=== PATIENT | female | born 1975 | race Caucasian/White ===

== ENCOUNTER 2023-05-25 12:14 | Outpatient (REF) | payer OTHER, SELFPAY | END 2023-05-25 12:15 | disposition home or self-care (01) | LOC: HO.LNP 12:14 | PROVIDERS: Visit Provider Otolaryngology | DX: H92.01 Otalgia, right ear (principal) | CPT/HCPCS: 87070; 87102; 87107; 87205 ==

== ENCOUNTER 2023-06-21 14:09 | Outpatient (AMB) | payer OTHER, SELFPAY ==
[2023-06-21 14:19] VITALS: BP 118/68; PULSE 82; O2SAT 98; BMI 40.2
--- NOTE | 2023-06-21 14:19 | A.OFFPC_ITS ---
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 Accompanied by: Self / Same As Patient Allergies azithromycin Allergy (Severe, Verified 06/21/23 17:29) Unknown Medication List - Last Reconciled 06/21/23 by VIKASH Antoine cetirizine (Allergy Relief (cetirizine)) 10 mg PO DAILY PRN estradiol 1 mg PO DAILY estradiol 0.5 mg PO DAILY semaglutide (weight loss) (Wegovy) 0.25 mg (0.5 mL) subcut QWEEK Tobacco use date assessed: 06/21/23 Dental Screening Dental Screen Date: 06/21/23 Did you have a dental visit in the last 12 months?: Yes Did you have a dental problem in the last 6 months where you did not have access to dental care?: No Was dental information given to patient?: Patient has dentist HPI New patient-Discuss weight loss HPI Details obesity: had lap gastric band surgery 2003. Has been on Rajni Boone , worked well, then had a child, and developed excessive weight gain. Pt has been on multiple diets, with little to minimal weight loss. I will try her on wegovy. Pt reports her mammogram is up to date, and has a nurse gynecology. Pt reported never having a colon screen, will refer. [facility] Surgical History S/P LASIK surgery of both eyes Hx of section S/P cholecystectomy Hx of laparoscopic gastric banding Hx of tonsillectomy Family History Mother Diabetes Uterine cancer Father Heart attack Social History Alcohol intake: current Alcohol intake frequency: holidays/special occasions only Alcohol type: beer and hard liquor Patient Tobacco Use Status: Never used Tobacco e-Cigarette/Vaping Use: Never Used service: No Current occupational status: employed Current occupation: teacher, [employer] Cognitive needs: No Hearing needs: No Vision needs: No Questionnaire PHQ-9 Over the last 2 weeks, how often have you been bothered by any of the following problems? 1. Little interest or pleasure in doing things: several days 2. Feeling down, depressed, or hopeless: several days 3. Trouble falling or staying asleep, or sleeping too much: not at all 4. Feeling tired or having little energy: several days 5. Poor appetite or overeating: several days 6. Feeling bad about yourself - or that you are a failure or have let yourself or your family down: not at all 7. Trouble concentrating on things, such as reading the newspaper or watching television: several days 8. Moving or speaking so slowly that other people could have noticed. Or the opposite - being so fidgety or restless that you have been moving around a lot more than usual: not at all 9. Thoughts that you would be better off or of hurting yourself in some way: not at all Total score: 5 Depression Screening Interpretation: Negative Depression Screening Done: Yes 49449 - PHQ-9 Billing: Yes Source: Developed by Drs. Leroy Becerril, Vanessa Brooks, Narendra Proctor and colleagues, with an educational tessy from [employer]. Thrive Questionnaire Date Thrive assessed: 06/21/23 I am a: Patient What is your living situation today?: I have a steady place to live Within the past 12 months, did the food you bought not last and you didn't have the money to get more?: Never true Within the past 12 months, did you worry whether your food would run out before you got money to buy more?: Never true Do you have trouble paying for medicines?: No Do you have trouble getting transportation to medical appointments?: No Do you have trouble paying your heating and electricity bill?: No Do you have trouble taking care of your child, family member or friend?: No Do you have trouble with day-to-day activities such as bathing, preparing meals, shopping, managing finances, etc.?: No Are you currently unemployed and looking for a job?: No Are you interested in more education?: No Please select the resources that you would like help with: None Currently or been in a relationship where the following occur: no concerns reported THRIVE Score: 0 YOVANI-7 AMB Questionnaire YOVANI-7 Date YOVANI - 7 assessed: 06/21/23 Feeling nervous, anxious, or on edge: 1 = Several days Not being able to stop or control worryin = Several days Worrying too much about different things: 1 = Several days Trouble relaxin = Several days Being so restless that it is hard to sit still: 1 = Several days Becoming easily annoyed or irritable: 1 = Several days Feeling afraid as if something awful might happen: 1 = Several days Total YOVANI-7 score (0-4 normal; 5-9 mild; 10-14 moderate; 15-21 severe): 7 Source: Developed by Drs. Leroy Becerril, Vanessa Brooks, Narendra Proctor and colleagues, with an educational tessy from [employer]. YOVANI-7 Assessment Billing YOVANI-7 Assessment Tool: YOVANI-7 Assessment 38368 Physical exam (Primary Care) Vital Signs: Last Vital Signs Pulse 82 06/21/23 14:19 BP 118/68 06/21/23 14:19 Pulse Ox 98 06/21/23 14:19 BMI result Body Mass Index 40.2 Tobacco/Smoking Status: Tobacco use Status Tobacco use date assessed 06/21/23 06/21/23 14:30 Patient Tobacco Use Status Never used Tobacco 06/21/23 14:30 e-Cigarette/Vaping Use Never Used 06/21/23 14:30 PHQ-9: PHQ-9 Score PHQ-9: Total score 5 06/21/23 15:15 Depression Screening Interpretation: Negative Thrive Assessment: Date of Thrive Assessment Date Thrive assessed 06/21/23 06/21/23 14:30 Currently or been in a relationship where the following occur: no concerns reported Const General: cooperative Nutritional Appearance: obese Resp Effort & Inspection: normal respiratory effort Auscultation: clear to auscultation bilaterally Cardio Rate: regular rate Rhythm: regular rhythm Heart sounds: S1 normal heart sound present and S2 normal heart sound present Psych Appearance: grossly normal Mental Status: mental status grossly normal Speech and movement: Normal speech and movement present Affect: normal affect Attitude: cooperative Thought process: Normal thought process present Thought content: Normal thought content present Insight: Good insight present (Psych) Judgement: Good judgement present (Psych) Assessment and Plan Assessment & Plan (1) Screening for colon cancer: Code(s): Z12.11 - Encounter for screening for malignant neoplasm of colon (2) Obesity: Code(s): E66.9 - Obesity, unspecified Plan: starting wegovy Orders: Orders Complete Blood Count Auto Diff Today E66.9 - Obesity, unspecified Comprehensive [place]. Panel Fast Today E66.9 - Obesity, unspecified Lipid Panel Today E66.9 - Obesity, unspecified TSH reflex Free T4 Today E66.9 - Obesity, unspecified UA CC w/rflx Micro + Cult Today E66.9 - Obesity, unspecified Referrals Gastroenterology Referral Z12.11 - Encounter for screening for malignant neoplasm of colon Medications: New semaglutide (weight loss) (Wegovy) administer weeks 1 through 4 of therapy 0.25 mg (0.5 mL) subcut QWEEK 2 mL 1RF semaglutide (weight loss) (Wegovy) administer weeks 1 through 4 of therapy 0.25 mg (0.5 mL) subcut QWEEK 2 mL 1RF Coding Level of Care Code New Pt Level 3 (06261) Diagnoses Screening for colon cancer Z12.11 Obesity E66.9 Additional Codes YOVANI-7 Assessment Billing - YOVANI-7 Assessment Tool: YOVANI-7 Assessment 42231 ([id number])
== END 2023-06-21 16:41 | disposition home or self-care (01) ==
PROVIDERS: PCP Nurse Practitioner Family; Visit Provider Nurse Practitioner Family
DX: E66.9 Obesity, unspecified (principal); Z68.41 Body mass index [BMI] 40.0-44.9, adult; Z12.11 Encounter for screening for malignant neoplasm of colon
CPT/HCPCS: 99213

== ENCOUNTER 2023-07-24 07:51 | Outpatient (REF) | payer OTHER, SELFPAY ==
[2023-07-24 10:15] LABS: MANUAL DIFF FLAG NO
[2023-07-24 10:17] LABS: Appearance Urine Clear; Color Urine Dark Yellow; Glucose Urine UA Negative (Negative); Leukocyte Esterase Urine Trace (Negative); Nitrite Urine Negative (Negative); Specific Gravity - Urine 1.025 (1.005-1.025); UMIC TRIGGER UACC YES; Urine Blood Negative (Negative); Urine Ketones Negative (Negative); Urine Protein Negative (Neg-Trace)
[2023-07-24 10:24] LABS: Bacteria Urine Trace (None Seen); Hyaline Casts Urine 0-2 /LPF (0-2); RBC Urine 0-2 /HPF (0-2); WBC Urine 0-5 /HPF (0-5)
[2023-07-24 10:26] LABS: Basophils Absolute Auto 0.1 X10*3/uL (0.0-0.2); Basophils Percent Auto 1.1 % (0-2); Eosinophils Absolute Auto 0.3 X10*3/uL (0.0-0.4); Eosinophils Percent Auto 5.7 % (0-4); Hematocrit 40.4 % (37.0-47.0); Hemoglobin 12.9 g/dl (12.0-16.0); Imm Gran Abs Auto 0.01 X10*3/uL (0.00-0.03); Imm Gran Pct Auto 0.2 % (0.0-0.4); Lymphocytes Absolute Auto 2.2 X10*3/uL (1.2-4.9); Lymphocytes Percent Auto 39.1 % (20-40); Mean Corpuscular HGB Conc 31.9 g/dl (31.0-35.0); Mean Corpuscular Hemoglobin 26.8 pg (27.0-33.0); Mean Platelet Volume 9.3 fL (9.4-12.3); Monocytes Absolute Auto 0.4 X10*3/uL (0.1-1.2); Monocytes Percent Auto 7.6 % (2-11); Neutrophils Absolute Auto 2.6 x10*3/uL (2.0-8.3); Neutrophils Percent Auto 46.3 % (45-73); Platelet Count 288 X10*3/uL (160-400); Red Blood Count 4.81 X10*6/uL (4.20-5.50); Red Cell Distribution Width 14.6 % (11.0-16.0); White Blood Count 5.6 X10*3/uL (4.8-10.8)
[2023-07-24 11:05] LABS: Alanine Aminotransferase 16 U/L (0-31); Alkaline Phosphatase 54 U/L (39-117); Anion Gap 9 (12-20); Aspartate Amino Transferase 18 U/L (5-31); Bilirubin Total 0.8 mg/dL (0.0-1.0); Blood Urea Nitrogen 8 mg/dL (9-16); Calcium 8.7 mg/dL (8.4-10.2); Carbon Dioxide 27 mmol/L (22-29); Chloride 108 mmol/L (96-108); Cholesterol 200 mg/dL (<200); Estimated Glomerular Filt Rate > 60; Glucose Fasting 98 mg/dL (60-99); HDL Cholesterol 55 mg/dL (>40); LDL Cholesterol Calculated 123 mg/dL (<100); Potassium 3.4 mmol/L (3.3-5.1); Sodium 141 mmol/L (135-145); Total Protein 6.9 g/dL (6.5-8.0); Triglycerides 114 mg/dL (<150)
[2023-07-24 11:30] LABS: TSH reflex Free T4 2.33 uIU/mL (0.32-4.0)
== END 2023-07-24 07:52 | disposition home or self-care (01) ==
LOC: HO.HMGCLDS 07:51
PROVIDERS: PCP Nurse Practitioner Family; Visit Provider Nurse Practitioner Family
DX: E66.9 Obesity, unspecified (principal)
CPT/HCPCS: 36415; 80053; 80061; 81001; 84443; 85025

== ENCOUNTER 2023-12-05 11:30 | Outpatient (AMB) | payer OTHER, SELFPAY ==
[2023-12-05 11:33] VITALS: BP 114/58; PULSE 77; BMI 39.6
--- NOTE | 2023-12-05 11:33 | A.OFFVIS_ITS ---
Vital Signs 3 12/05/23 11:33 Height 5 ft 4 in Weight 230 lb 9.656 oz BMI 39.6 BP 114/58 L Blood Pressure Location Rt brachial Position Sitting Pulse 77 Intake Visit Reasons: Colonoscopy Screening Intake Note: Lona presents in office today as a new patient for colonoscopy screening. CC: Patient states that she was on vacation and returned on Monday. She reports onset of lower back pain that started on Monday. Pain is a 7/10 pain scale and it has radiated from her right lower back to her left lower back, pain feels like a stabbing. She reports having some constipation. She took stool softener but has only been able to have very small stool pass. She also report nausea sometimes. She states that a few months ago she saw bright red blood in the toilet bowl but her PCP was not concerned about it. She has hx of hemorrhoids when she was . 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 She is referred by Sang Jolly. PMX Obesity Back pain * SURGICAL HISTORY Lasix surgery section Cholecystectomy Lap gastric band Tonsillectomy * ALLERGIES Zithromax - rash * Wi3 LABS: Laboratory Tests 07/24/23 07:55 WBC 5.6 Hgb 12.9 Hct 40.4 Plt Count 288 Estimated GFR > 60 Total Bilirubin 0.8 AST 18 ALT 16 Alkaline Phosphatase 54 TSH 2.33 TODAY'S VISIT This is her first colonoscopy. She generally does not have bowel problems, but she has had back pain and CIC just this once since she was on vacation - I recommend MOM, miralax and/or senna. No upper problems. She denies any cardiac or respiratory problems There are no prior problems with anesthesia or sedation. No ID problems. There is no known FHX of crc or polyps. [facility] Surgical History S/P LASIK surgery of both eyes Hx of section S/P cholecystectomy Hx of laparoscopic gastric banding Hx of tonsillectomy Family History Mother Diabetes Uterine cancer Father Heart attack Social History Alcohol intake: current Alcohol intake frequency: holidays/special occasions only Alcohol type: beer and hard liquor Patient Tobacco Use Status: Never used Tobacco e-Cigarette/Vaping Use: Never Used service: No Current occupational status: employed Current occupation: teacher, [employer] Cognitive needs: No Hearing needs: No Vision needs: No Review of Systems Const Denies fatigue, Denies fever(s), Denies night sweats, Denies poor appetite and Denies weight loss ENT Reports Normal hearing present, Denies dysphagia, Denies odynophagia, Denies throat swelling and Denies tongue swelling Card Reports no additional complaints Resp Reports no additional complaints GI Details: Denies abdominal pain, Denies melena, Denies bloating, Denies hematochezia, Reports constipation, Denies GI cramping, Denies dysphagia, Denies excessive flatus, Denies early satiety, Denies heartburn, Denies diarrhea, Denies nausea, Denies odynophagia, Denies vomiting and Denies hematemesis Skin/Breast Denies pruritus, Denies lesions, Denies rash and Denies jaundice Neuro Reports Normal hearing present and Denies Abnormal speech present Endo Denies fatigue Aller/Immun Denies throat swelling and Denies tongue swelling Physical Exam Vital Signs: Last Vital Signs Pulse 77 12/05/23 11:33 BP 114/58 L 12/05/23 11:33 BMI result Body Mass Index 39.6 Const General: cooperative, no acute distress, well developed and well groomed Nutritional Appearance: well nourished and obese Orientation/consciousness: oriented to person, oriented to place and oriented to time Limitations: No language barrier HEENT Head: Yes normocephalic and Yes atraumatic Eyes General: appearance normal, both eyes and all related structures Pupils: Equal, round and reactive pupils present Neck Neck: Yes normal visual inspection and Yes no lymphadenopathy Thyroid: Thyroid normal Resp Effort & Inspection: normal respiratory effort and able to speak in complete sentences Auscultation: clear to auscultation bilaterally Cardio Rate: regular rate Rhythm: regular rhythm Heart sounds: Normal, physiologic split S2 sound present Peripheral pulses: radial pulses present and posterior tibial pulses present GI Inspection: Yes abdominal wall ecchymosis, No distended, Yes Abdominal panniculus present, Yes obesity, Yes scar and Yes striae Palpation (GI): Soft to palpation, nontender, no guarding, not rigid and No hepatosplenomegaly present Percussion: Yes normal to percussion Auscultation: normal bowel sounds Rectal Exam - Female: deferred Abdomen image: 2 1. surgical scars 2. 3. Skin General skin exam: no rashes or lesions noted, turgor normal, skin not dry, no jaundice, No spider nevi and no striae Rashes: no rashes Nails: normal Neuro General: oriented to person, oriented to place and oriented to time Cranial nerves: Yes Equal, round and reactive pupils present and Yes Normal hearing present Speech: No Abnormal speech present Extrem General: Yes normal to inspection, No clubbing, No cyanosis and No edema Psych Appearance: grossly normal and well kempt Mental Status: mental status grossly normal Speech and movement: Normal speech and movement present Affect: normal affect Attitude: cooperative Thought process: Normal thought process present and not confabulating Thought content: Normal thought content present Insight: Good insight present (Psych) Judgement: Good judgement present (Psych) Assessment & Plan Assessment & Plan (1) Pre-op examination: Code(s): Z01.818 - Encounter for other preprocedural examination Category: Medical Plan This is her first colonoscopy. She generally does not have bowel problems, but she has had back pain and CIC just this once since she was on vacation - I recommend MOM, miralax and/or senna. No upper problems. She denies any cardiac or respiratory problems There are no prior problems with anesthesia or sedation. No ID problems. There is no known FHX of crc or polyps. Orders: Orders 2 Colonoscopy - GI Use Only 12/05/23 Z01.818 - Encounter for other preprocedural examination Medications: New 2 sodium,potassium,mag sulfates 17.5-3.13-1.6 gram (Suprep Bowel Prep Kit) 480 mL orally; FOR COLONOSCOPY PREP 354 mL 0RF Coding Level of Care Code New Pt Level 3 (45966) Diagnoses Pre-op examination Z01.818
== END 2023-12-05 12:10 | disposition home or self-care (01) ==
PROVIDERS: PCP Nurse Practitioner Family; Visit Provider Nurse Practitioner
DX: Z01.818 Encounter for other preprocedural examination (principal)
CPT/HCPCS: 99203

== ENCOUNTER → 2023-12-05 11:30 | Outpatient (BNVA) | payer OTHER, SELFPAY | PROVIDERS: PCP Nurse Practitioner Family; Visit Provider Nurse Practitioner ==

== ENCOUNTER 2023-12-07 13:28 | Outpatient (AMB) | payer OTHER, SELFPAY ==
[2023-12-07 13:29] VITALS: BP 120/62; PULSE 81; O2SAT 97; BMI 39.3
--- NOTE | 2023-12-07 13:29 | MHC.PC.OV ---
Vital Signs 12/07/23 13:29 Height 5 ft 4 in Weight 229 lb BMI 39.3 BP 120/62 Blood Pressure Location Rt brachial Position Sitting Pulse 81 Pulse Source Pulse Oximeter Pulse Oximetry (%) 97 Oxygen Delivery Method Room Air Intake Visit Reasons: Annual PE Intake Note: pt is here for annual exam Allergies azithromycin Allergy (Severe, Verified 12/07/23 13:30) Unknown cat dander Allergy (Severe, Verified 12/07/23 13:30) Itching dog dander Allergy (Severe, Verified 12/07/23 13:30) Rash latex Allergy (Severe, Verified 12/07/23 13:30) rash Seasonal Allergies Allergy (Severe, Verified 12/07/23 13:30) Rash Medication List - Last Reconciled 12/07/23 by VIKASH Antoine aspirin 81 mg PO DAILY cetirizine (Allergy Relief (cetirizine)) 10 mg PO DAILY PRN d-mannose 1,000 mg PO DAILY estradiol 1 mg PO DAILY estradiol 0.5 mg PO DAILY fluticasone propionate 50 mcg/actuation 1 spray intranasal DAILY L. reuteri-L. rhamnosus 5 billion cell (RepHresh Pro-B) caps PO semaglutide (weight loss) (Wegovy) 0.25 mg (0.5 mL) subcut QWEEK Tobacco use date assessed: 06/21/23 Dental Screening Dental Screen Date: 06/21/23 HPI Annual PE HPI Details Pt is here for a PE. Will order labs. Pt is seeing GI for her colon screen. Has a sales and marketing coordinator. Mammo is up to date according to pt. Pt is interested in weight loss. She has tried losing weight with diet modification, meal prepping, exercise, etc for over 6 months. She has also tried phentermine with no success. Pt's current weight is 229lbs and her BMI is 39.3. Will send wegovy. HPI Comments History of Present Illness Details pt is here for a PE [facility] Surgical History S/P LASIK surgery of both eyes Hx of section S/P cholecystectomy Hx of laparoscopic gastric banding Hx of tonsillectomy Family History Mother Diabetes Uterine cancer Father Heart attack Social History Alcohol intake: current Alcohol intake frequency: holidays/special occasions only Alcohol type: beer and hard liquor Patient Tobacco Use Status: Never used Tobacco e-Cigarette/Vaping Use: Never Used service: No Current occupational status: employed Current occupation: teacher, [employer] Cognitive needs: No Hearing needs: No Vision needs: No Questionnaire PHQ-9 Over the last 2 weeks, how often have you been bothered by any of the following problems? 1. Little interest or pleasure in doing things: not at all 2. Feeling down, depressed, or hopeless: not at all 3. Trouble falling or staying asleep, or sleeping too much: not at all 4. Feeling tired or having little energy: not at all 5. Poor appetite or overeating: not at all 6. Feeling bad about yourself - or that you are a failure or have let yourself or your family down: not at all 7. Trouble concentrating on things, such as reading the newspaper or watching television: not at all 8. Moving or speaking so slowly that other people could have noticed. Or the opposite - being so fidgety or restless that you have been moving around a lot more than usual: not at all 9. Thoughts that you would be better off or of hurting yourself in some way: not at all Total score: 0 Depression Screening Interpretation: Negative Depression Screening Done: Yes 50833 - PHQ-9 Billing: Yes Source: Developed by Drs. Leroy Becerril, Vanessa Brooks, Narendra Proctor and colleagues, with an educational tessy from [employer]. Thrive Questionnaire Date Thrive assessed: 12/07/23 I am a: Patient What is your living situation today?: I have a steady place to live Within the past 12 months, did the food you bought not last and you didn't have the money to get more?: Never true Within the past 12 months, did you worry whether your food would run out before you got money to buy more?: Never true Do you have trouble paying for medicines?: No Do you have trouble getting transportation to medical appointments?: No Do you have trouble paying your heating and electricity bill?: No Do you have trouble taking care of your child, family member or friend?: No Do you have trouble with day-to-day activities such as bathing, preparing meals, shopping, managing finances, etc.?: No Are you currently unemployed and looking for a job?: No Are you interested in more education?: No Please select the resources that you would like help with: None Currently or been in a relationship where the following occur: No concerns reported THRIVE Score: 0 AUDIT C Alcohol Use Questionnaire (AUDIT-C) 1. How often do you have a drink containing alcohol?: Monthly or less 2. How many drinks containing alcohol do you have on a typical day when you are drinking?: 1 or 2 Total Score: 1 Score Reviewed/Action Taken: Yes YOVANI-7 AMB Questionnaire YOVANI-7 Date YOVANI - 7 assessed: 12/07/23 Feeling nervous, anxious, or on edge: 0 = Not at all Not being able to stop or control worryin = Not at all Worrying too much about different things: 0 = Not at all Trouble relaxin = Not at all Being so restless that it is hard to sit still: 0 = Not at all Becoming easily annoyed or irritable: 1 = Several days Feeling afraid as if something awful might happen: 0 = Not at all Total YOVANI-7 score (0-4 normal; 5-9 mild; 10-14 moderate; 15-21 severe): 1 Source: Developed by Drs. Leroy Becerril, Vanessa Brooks, Narendra Proctor and colleagues, with an educational tessy from [employer]. YOVANI-7 Assessment Billing YOVANI-7 Assessment Tool: YOVANI-7 Assessment 16836 Review of Systems Const Denies chills and Denies fever(s) Eyes Denies blurry vision ENT Denies vertigo, Denies dizziness and Denies sore throat Card Denies chest pain at rest, Denies chest pain with activity, Denies diaphoresis, Denies dyspnea and Denies dyspnea on exertion Resp Denies cough, Denies dyspnea, Denies dyspnea on exertion and Denies wheezing GI Denies abdominal pain, Denies melena, Denies hematochezia, Denies constipation, Denies diarrhea and Denies loose stools Denies hematuria Musc Denies numbness and Denies tingling Skin/Breast Denies lesions Neuro Denies vertigo, Denies dizziness, Denies numbness and Denies tingling Psych Denies anxiety, Denies depression, Denies homicidal ideation, Denies suicidal ideation and Denies other (substance abuse) Aller/Immun Denies wheezing Physical exam (Primary Care) Vital Signs: Last Vital Signs Pulse 81 12/07/23 13:29 BP 120/62 12/07/23 13:29 Pulse Ox 97 12/07/23 13:29 Oxygen Delivery Method Room Air 12/07/23 13:29 BMI result Body Mass Index 39.3 Tobacco/Smoking Status: Tobacco use Status Tobacco use date assessed 06/21/23 12/07/23 13:32 Patient Tobacco Use Status Never used Tobacco 12/07/23 13:32 e-Cigarette/Vaping Use Never Used 12/07/23 13:32 PHQ-9: PHQ-9 Score PHQ-9: Total score 0 12/07/23 13:49 Depression Screening Interpretation: Negative Thrive Assessment: Date of Thrive Assessment Date Thrive assessed 12/07/23 12/07/23 13:32 Currently or been in a relationship where the following occur: No concerns reported Const General: cooperative Nutritional Appearance: obese Orientation/consciousness: patient oriented x3 HENMT Head: Yes normal to inspection, Yes normocephalic and Yes atraumatic Ears: TM's normal bilaterally Eyes General: appearance normal, both eyes and all related structures Alignment and Position: alignment normal and position normal Neck Neck: Yes normal visual inspection and Yes no lymphadenopathy Thyroid: Thyroid normal Resp Effort & Inspection: normal respiratory effort Auscultation: clear to auscultation bilaterally Cardio Rate: regular rate Rhythm: regular rhythm Heart sounds: S1 normal heart sound present, S2 normal heart sound present and no murmurs GI Palpation (GI): Soft to palpation and nontender Auscultation: normal bowel sounds Skin Rashes: no rashes Neuro General: patient oriented x3, moves all extremities, no focal motor deficits and deep tendon reflexes 2+ bilaterally Romberg Test: Negative Psych Appearance: grossly normal Mental Status: mental status grossly normal Speech and movement: Normal speech and movement present Affect: normal affect Attitude: cooperative Thought process: Normal thought process present Thought content: Normal thought content present Insight: Good insight present (Psych) Judgement: Good judgement present (Psych) Assessment and Plan Assessment & Plan (1) Encounter for routine adult physical exam with abnormal findings: Code(s): Z00.01 - Encounter for general adult medical examination with abnormal findings Plan: Labs ordered (2) Morbid obesity: Code(s): E66.01 - Morbid (severe) obesity due to excess calories Plan: starting wegovy Plan The patient agreed to the use of a medical insurance collector for this encounter. Scribed for VIKASH Santamaria by Becca Lancaster medical insurance collector, on 12/07/2023 at 13:50 EST. Orders: Orders Comprehensive [place]. Panel Fast Today Z00.01 - Encounter for general adult medical examination with abnormal findings TSH reflex Free T4 Today Z00.01 - Encounter for general adult medical examination with abnormal findings UA CC w/rflx Micro + Cult Today Z00.01 - Encounter for general adult medical examination with abnormal findings Complete Blood Count Auto Diff Today Z00.01 - Encounter for general adult medical examination with abnormal findings Lipid Panel Today Z00.01 - Encounter for general adult medical examination with abnormal findings Medications: New semaglutide (weight loss) (Wegovy) administer weeks 1 through 4 of therapy 0.25 mg (0.5 mL) subcut QWEEK 2 mL 0RF Coding Level of Care Code Est Pt Prev Care 40-64y(81457) Diagnoses Encounter for routine adult physical exam with abnormal findings Z00.01 Morbid obesity E66.01 Additional Codes YOVANI-7 Assessment Billing - YOVANI-7 Assessment Tool: YOVANI-7 Assessment [id number] ([id number])
== END 2023-12-07 14:14 | disposition home or self-care (01) ==
PROVIDERS: PCP Nurse Practitioner Family; Visit Provider Nurse Practitioner Family
DX: Z00.00 Encounter for general adult medical examination without abnormal findings (principal); E66.01 Morbid (severe) obesity due to excess calories; Z68.39 Body mass index [BMI] 39.0-39.9, adult
CPT/HCPCS: 99396

== ENCOUNTER 2024-02-23 07:30 | Outpatient (REF) | payer OTHER, SELFPAY ==
[2024-02-23 10:05] LABS: Appearance Urine Clear; Color Urine Yellow; Glucose Urine UA Negative (Negative); Leukocyte Esterase Urine Negative (Negative); Nitrite Urine Negative (Negative); PH 7.5 (5.0-9.0); Specific Gravity - Urine <= 1.005 (1.005-1.025); Urine Blood Negative (Negative); Urine Ketones Negative (Negative); Urine Protein Negative (Neg-Trace)
[2024-02-23 10:07] LABS: Basophils Percent Auto 0.5 % (0-2); Eosinophils Absolute Auto 0.1 X10*3/uL (0.0-0.4); Eosinophils Percent Auto 2.5 % (0-4); Hematocrit 38.8 % (37.0-47.0); Hemoglobin 12.7 g/dl (12.0-16.0); Imm Gran Abs Auto 0.02 X10*3/uL (0.00-0.03); Imm Gran Pct Auto 0.4 % (0.0-0.4); Lymphocytes Absolute Auto 1.2 X10*3/uL (1.2-4.9); Lymphocytes Percent Auto 22.2 % (20-40); MANUAL DIFF FLAG NO; Mean Corpuscular HGB Conc 32.7 g/dl (31.0-35.0); Mean Corpuscular Hemoglobin 26.7 pg (27.0-33.0); Mean Corpuscular Volume 81.5 fL (80.0-98.0); Mean Platelet Volume 9.7 fL (9.4-12.3); Monocytes Absolute Auto 0.4 X10*3/uL (0.1-1.2); Monocytes Percent Auto 7.2 % (2-11); Neutrophils Absolute Auto 3.8 x10*3/uL (2.0-8.3); Neutrophils Percent Auto 67.2 % (45-73); Platelet Count 264 X10*3/uL (160-400); Red Blood Count 4.76 X10*6/uL (4.20-5.50); Red Cell Distribution Width 15.3 % (11.0-16.0); White Blood Count 5.6 X10*3/uL (4.8-10.8)
[2024-02-23 12:14] LABS: Alanine Aminotransferase 17 U/L (0-31); Albumin Level 4.1 g/dL (3.5-5.0); Alkaline Phosphatase 52 U/L (39-117); Anion Gap 13 (12-20); Aspartate Amino Transferase 22 U/L (5-31); Bilirubin Total 0.9 mg/dL (0.0-1.0); Blood Urea Nitrogen 7 mg/dL (9-16); Calcium 8.9 mg/dL (8.4-10.2); Carbon Dioxide 24 mmol/L (22-29); Chloride 108 mmol/L (96-108); Cholesterol 207 mg/dL (<200); Estimated Glomerular Filt Rate > 60; Glucose Fasting 106 mg/dL (60-99); HDL Cholesterol 70 mg/dL (>40); LDL Cholesterol Calculated 123 mg/dL (<100); Potassium 3.7 mmol/L (3.3-5.1); Sodium 141 mmol/L (135-145); Total Protein 6.8 g/dL (6.5-8.0); Triglycerides 72 mg/dL (<150)
[2024-02-23 12:34] LABS: TSH reflex Free T4 1.63 uIU/mL (0.32-4.0)
== END 2024-02-23 07:31 | disposition home or self-care (01) ==
LOC: HO.HMGCLDS 07:30
PROVIDERS: PCP Nurse Practitioner Family; Visit Provider Nurse Practitioner Family
DX: Z00.01 Encounter for general adult medical examination with abnormal findings (principal)
CPT/HCPCS: 36415; 80053; 80061; 81003; 84443; 85025

== ENCOUNTER 2024-02-27 07:34 | Outpatient (AMB) | payer OTHER, SELFPAY ==
--- NOTE | 2024-02-27 07:10 | A.OFFPC_ITS ---
Intake Visit Reasons: lab review Allergies azithromycin Allergy (Severe, Verified 02/27/24 07:28) Unknown cat dander Allergy (Severe, Verified 02/27/24 07:28) Itching dog dander Allergy (Severe, Verified 02/27/24 07:28) Rash latex Allergy (Severe, Verified 02/27/24 07:28) rash Seasonal Allergies Allergy (Severe, Verified 02/27/24 07:28) Rash Medication List - Last Reconciled 02/27/24 by VIKASH Antoine aspirin 81 mg PO DAILY atorvastatin 10 mg PO BEDTIME cetirizine (Allergy Relief (cetirizine)) 10 mg PO DAILY PRN d-mannose 1,000 mg PO DAILY estradiol 1 mg PO DAILY estradiol 0.5 mg PO DAILY fluticasone propionate 50 mcg/actuation 1 spray intranasal DAILY L. reuteri-L. rhamnosus 5 billion cell (RepHresh Pro-B) caps PO semaglutide (weight loss) (Wegovy) 0.25 mg (0.5 mL) subcut QWEEK Tobacco use date assessed: 06/21/23 Dental Screening Dental Screen Date: 06/21/23 HPI lab review HPI Details Dyslipidemia: Pt's lipids were noted to be elevated. Will start atorvastatin 10mg. Will repeat labs 2 months after starting medication. Denies chest pain, shortness of breath, and dizziness. [facility]LY [facility] Surgical History S/P LASIK surgery of both eyes Hx of section S/P cholecystectomy Hx of laparoscopic gastric banding Hx of tonsillectomy Family History Mother Diabetes Uterine cancer Father Heart attack Social History Alcohol intake: current Alcohol intake frequency: holidays/special occasions only Alcohol type: beer and hard liquor Patient Tobacco Use Status: Never used Tobacco e-Cigarette/Vaping Use: Never Used service: No Current occupational status: employed Current occupation: teacher, [employer] Cognitive needs: No Hearing needs: No Vision needs: No Questionnaire Thrive Questionnaire Date Thrive assessed: 11/30/23 I am a: Patient What is your living situation today?: I have a steady place to live Within the past 12 months, did the food you bought not last and you didn't have the money to get more?: Never true Within the past 12 months, did you worry whether your food would run out before you got money to buy more?: Never true Do you have trouble paying for medicines?: No Do you have trouble getting transportation to medical appointments?: No Do you have trouble paying your heating and electricity bill?: No Do you have trouble taking care of your child, family member or friend?: No Do you have trouble with day-to-day activities such as bathing, preparing meals, shopping, managing finances, etc.?: No Are you currently unemployed and looking for a job?: No Are you interested in more education?: No Please select the resources that you would like help with: None Currently or been in a relationship where the following occur: No concerns reported THRIVE Score: 0 YOVANI-7 AMB Questionnaire YOVANI-7 Date YOVANI - 7 assessed: 12/07/23 Source: Developed by Drs. Leroy Becerril, Vanessa Brooks, Narendra Proctor and colleagues, with an educational tessy from [employer]. Review of Systems Const Reports as per HPI Physical exam (Primary Care) Tobacco/Smoking Status: Tobacco use Status Tobacco use date assessed 06/21/23 02/27/24 07:14 Patient Tobacco Use Status Never used Tobacco 02/27/24 07:14 e-Cigarette/Vaping Use Never Used 02/27/24 07:14 Thrive Assessment: Date of Thrive Assessment Date Thrive assessed 11/30/23 02/27/24 07:14 Currently or been in a relationship where the following occur: No concerns reported Const General: cooperative Orientation/consciousness: patient oriented x3 Neuro General: patient oriented x3 Psych Appearance: grossly normal Mental Status: mental status grossly normal Speech and movement: Clear speech present Affect: normal affect Attitude: cooperative Thought process: Normal thought process present Thought content: Normal thought content present Insight: Good insight present (Psych) Judgement: Good judgement present (Psych) Telehealth Telehealth Telehealth Platform: [facility] Location of provider rendering services: practice address Location of patient: address on file Patient Identification confirmed using: Name, : Yes Telehealth method: video Patient verbally consented to treatment: Yes Patient verbally consented to billing insurance company: Yes Patient informed of any privacy concerns related to visit: Yes Minutes spent on Phone/Video with Pt.: 10 Coding Level of Care Code Tele Est Pt Level 3 (85391) Diagnoses Dyslipidemia E78.5 Assessment & Plan Assessment & Plan (1) Dyslipidemia: Code(s): E78.5 - Hyperlipidemia, unspecified Category: Medical Plan: Starting atorvastatin, repeat labs 2 months after starting med Plan The patient agreed to the use of a medical billing specialist for this encounter. Scribed for VIKASH Santamaria by Becca Lancaster medical billing specialist, on 02/27/2024 at 07:10 EST. Orders: Orders Lipid Panel 2 Months E78.5 - Hyperlipidemia, unspecified Comprehensive [place]. Panel Fast 2 Months E78.5 - Hyperlipidemia, unspecified Medications: New atorvastatin 10 mg PO BEDTIME 90 tabs 0RF
== END 2024-02-27 07:44 | disposition home or self-care (01) ==
LOC: HO.HMCC 07:34
PROVIDERS: PCP Nurse Practitioner Family; Visit Provider Nurse Practitioner Family
DX: E78.5 Hyperlipidemia, unspecified (principal)

== ENCOUNTER → 2024-02-27 07:34 | Outpatient (BNVA) | payer OTHER, SELFPAY | PROVIDERS: PCP Nurse Practitioner Family; Visit Provider Nurse Practitioner Family | DX: E78.5 Hyperlipidemia, unspecified (principal) ==

== ENCOUNTER 2024-04-30 07:51 | Day surgery (SDC) | payer OTHER, SELFPAY ==
[2024-04-26 13:48] VITALS: BMI 39.5
--- NOTE | 2024-04-29 11:39 | P.CONAN_ITS ---
HPI - Anesthesia Eval Consult details Narrative: 49yo F for Colonoscopy PMFSH Active Problems Active Problems: All Active Problems Dyslipidemia (Acute) Morbid obesity (Acute) Encounter for routine adult physical exam with abnormal findings (Acute) Pre-op examination (Acute) Obesity (Acute) Screening for colon cancer (Acute) Back pain (Acute) Family History Family History Mother Diabetes Uterine cancer Father Heart attack Surgical History Surgical History S/P LASIK surgery of both eyes Hx of section S/P cholecystectomy Hx of laparoscopic gastric banding Hx of tonsillectomy Social History Social History Alcohol intake: current Alcohol intake frequency: holidays/special occasions only Alcohol type: beer and hard liquor Patient Tobacco Use Status: Never used Tobacco e-Cigarette/Vaping Use: Never Used service: No Current occupational status: employed Current occupation: teacher, [employer] Cognitive needs: No Hearing needs: No Vision needs: No Meds Allergies Allergy/AdvReac Type Severity Reaction Status Date / Time azithromycin Allergy Severe Unknown Verified 02/27/24 07:28 cat dander Allergy Severe Itching Verified 02/27/24 07:28 dog dander Allergy Severe Rash Verified 02/27/24 07:28 latex Allergy Severe rash Verified 02/27/24 07:28 Seasonal Allergies Allergy Severe Rash Verified 02/27/24 07:28 Home Medications ?Medication ?Instructions ?Recorded ?Confirmed ?Last Taken ?Type cetirizine 10 mg tablet (Allergy 10 mg PO DAILY PRN 06/21/23 02/27/24 Unknown History Relief (cetirizine)) estradiol 0.5 mg tablet 0.5 mg PO DAILY 06/21/23 02/27/24 Unknown History estradiol 1 mg tablet 1 mg PO DAILY 06/21/23 02/27/24 Unknown History Lactobacillus cap PO 12/05/23 02/27/24 Unknown History reuteri-Lactobacillus rhamnosus 5 billion cell capsule (RepHresh Pro-B) aspirin 81 mg tablet 81 mg PO DAILY 12/05/23 02/27/24 Unknown History d-mannose 500 mg capsule 1,000 mg PO DAILY 12/05/23 02/27/24 Unknown History fluticasone propionate 50 1 spray intranasal DAILY 12/05/23 02/27/24 Unknown History mcg/actuation nasal spray,suspension Exam Height,Weight and Vital Signs: Height 5 ft 4 in Weight 104.326 kg Assessment and Plan Assessment Anesthesia Assessment: Chart Reviewed
[2024-04-30 08:29] LABS: UPreg QC Valid YES
[2024-04-30 08:30] LABS: Urine Pregnancy NEGATIVE (NEGATIVE)
[2024-04-30] MEDS: Lactated Ringers 1,000 ML 100 ML IVCONT (08:34)
[2024-04-30 08:37] VITALS: BP 113/84; PULSE 85; RESP 18; TEMP 36.7; O2SAT 98
--- NOTE | 2024-04-30 08:48 | MHC.SHP ---
Pre-Procedural Eval Section A - 24 Hr Update-Section A only Date of Service: 04/30/24 Section B - Complete if H&P > 30 days Chief Complaint: Screening Details of Present Illness: Obesity Back pain * SURGICAL HISTORY Lasix surgery section Cholecystectomy Lap gastric band Tonsillectomy * ALLERGIES Zithromax - rash * Present Medications: see Short Stay Collaborative assessment Allergies: Allergies Allergy/AdvReac Type Severity Reaction Status Date / Time azithromycin Allergy Severe Unknown Verified 04/30/24 08:29 cat dander Allergy Severe Itching Verified 04/30/24 08:29 dog dander Allergy Severe Rash Verified 04/30/24 08:29 latex Allergy Severe rash Verified 04/30/24 08:29 Seasonal Allergies Allergy Severe Rash Verified 04/30/24 08:29 Review of Systems Review of Systems Comment: Ten point ROS negative Exam Exam Comment: Gen appear: No acute distress HEENT: no icterus Chest: No overt resp distress Abd: soft, nontender, nondistended Psych: Stable affect, answering questions appropriately Neuro: A/Ox3 noted to move all extremities spontaneously Ext: no peripheral edema Plan Diagnosis/Plan: Unchanged I have reviewed the history and physical and performed a pertinent physical examination on my patient. No changes have occurred unless specified. Time Spent With Patient Time: Total time managing care of this patient today ____ minutes.
--- NOTE | 2024-04-30 08:56 | HO.ANESPROP2 ---
[facility] Active Problems Active Problems: All Active Problems Dyslipidemia (Acute) Morbid obesity (Acute) Encounter for routine adult physical exam with abnormal findings (Acute) Pre-op examination (Acute) Obesity (Acute) Screening for colon cancer (Acute) Back pain (Acute) Past Medical History Medical History Hypercholesteremia Functional capacity: independent ambulation Patient : No Family History Family History Mother Diabetes Uterine cancer Father Heart attack Family history of problems with anesthesia: No Surgical History Surgical History S/P LASIK surgery of both eyes Hx of section S/P cholecystectomy Hx of laparoscopic gastric banding Hx of tonsillectomy History of Problems with Anesthesia: No Social History Social History Are you a primary assurance services manager health care to a significant other at home: No Do you presently have visiting nurse or other home services: No Alcohol intake: current Alcohol intake frequency: holidays/special occasions only Alcohol type: beer and hard liquor Patient Tobacco Use Status: Never used Tobacco e-Cigarette/Vaping Use: Never Used Have you been hit, kicked, punched, or otherwise hurt by someone within the past year? If so, by whom?: No Are you DNR?: No Advance Directives: No Advance Directives Information Provided: Yes Recently lost weight without trying: No Nutrition Risks: No Nutritional Risk FDLMP: uknown due to mirena service: No Current occupational status: employed Current occupation: teacher, [employer] Cognitive needs: No Hearing needs: No Vision needs: No Meds Allergies Allergy/AdvReac Type Severity Reaction Status Date / Time azithromycin Allergy Severe Unknown Verified 04/30/24 08:29 cat dander Allergy Severe Itching Verified 04/30/24 08:29 dog dander Allergy Severe Rash Verified 04/30/24 08:29 latex Allergy Severe rash Verified 04/30/24 08:29 Seasonal Allergies Allergy Severe Rash Verified 04/30/24 08:29 Active Medications: Current Medications Lactated Ringer's (Lr) 1,000 mls @ 100 mls/hr IVCONT .Q10H BLAKE Last Admin: 04/30/24 08:34 Dose: 100 mls/hr Home Medications ?Medication ?Instructions ?Recorded ?Confirmed ?Last Taken ?Type cetirizine 10 mg tablet (Allergy 10 mg PO DAILY PRN Allergy Symptoms 06/21/23 04/30/24 04/30/24 History Relief (cetirizine)) estradiol 0.5 mg tablet 0.5 mg PO DAILY 06/21/23 04/30/24 Unknown History estradiol 1 mg tablet 1 mg PO DAILY 06/21/23 04/30/24 Unknown History Lactobacillus cap PO 12/05/23 02/27/24 Unknown History reuteri-Lactobacillus rhamnosus 5 billion cell capsule (RepHresh Pro-B) aspirin 81 mg tablet 81 mg PO DAILY 12/05/23 04/30/24 Unknown History d-mannose 500 mg capsule 1,000 mg PO DAILY 12/05/23 04/30/24 Unknown History fluticasone propionate 50 1 spray intranasal DAILY 12/05/23 04/30/24 Unknown History mcg/actuation nasal spray,suspension Exam Height,Weight and Vital Signs: Height 5 ft 4 in Weight 104.326 kg Last Vital Signs Temp 98.1 F 04/30/24 08:37 Pulse 85 04/30/24 08:37 Resp 18 04/30/24 08:37 BP 113/84 04/30/24 08:37 Pulse Ox 98 04/30/24 08:37 O2 Del Method Room Air 04/30/24 08:37 Pertinent Lab Results Pertinent Lab Results: Laboratory Tests 04/30/24 08:15 Urine Test NEGATIVE Airway Mallampati Class: III TM Dist: >3cm Neck ROM: Full Heart: RRR Lungs: CTA Assessment and Plan Assessment Anesthesia Assessment: Anesthesia Plan Discussed and Chart Reviewed Final Anesthetic Review Family History of Problems with Anesthesia: No History of Problems with Anesthesia: No NPO: Yes ASA Class: III Final Preanesthetic Review: Meds/Allgs Chart Reviewed, Consent Obtained/Reviewed and Anes Risks/Benef Reviewed Patient Risk: Intermediate Procedure Risk: Low Anesthetic Plan Anesthetic Plan: MAC: Disposition: Standard PACU
--- NOTE | 2024-04-30 09:41 | P.CONAN_ITS ---
[facility] Active Problems Active Problems: All Active Problems Dyslipidemia (Acute) Morbid obesity (Acute) Encounter for routine adult physical exam with abnormal findings (Acute) Pre-op examination (Acute) Obesity (Acute) Screening for colon cancer (Acute) Back pain (Acute) Past Medical History Medical History Hypercholesteremia Functional capacity: independent ambulation Patient : No Family History Family History Mother Diabetes Uterine cancer Father Heart attack Family history of problems with anesthesia: No Surgical History Surgical History S/P LASIK surgery of both eyes Hx of section S/P cholecystectomy Hx of laparoscopic gastric banding Hx of tonsillectomy History of Problems with Anesthesia: No Social History Social History Are you a primary health care social worker to a significant other at home: No Do you presently have visiting nurse or other home services: No Alcohol intake: current Alcohol intake frequency: holidays/special occasions only Alcohol type: beer and hard liquor Patient Tobacco Use Status: Never used Tobacco e-Cigarette/Vaping Use: Never Used Have you been hit, kicked, punched, or otherwise hurt by someone within the past year? If so, by whom?: No Are you DNR?: No Advance Directives: No Advance Directives Information Provided: Yes Recently lost weight without trying: No Nutrition Risks: No Nutritional Risk Patient : No FDLMP: uknown due to mirena service: No Current occupational status: employed Current occupation: teacher, [employer] Cognitive needs: No Hearing needs: No Vision needs: No Meds Allergies Allergy/AdvReac Type Severity Reaction Status Date / Time azithromycin Allergy Severe Unknown Verified 04/30/24 08:29 cat dander Allergy Severe Itching Verified 04/30/24 08:29 dog dander Allergy Severe Rash Verified 04/30/24 08:29 latex Allergy Severe rash Verified 04/30/24 08:29 Seasonal Allergies Allergy Severe Rash Verified 04/30/24 08:29 Active Medications: Current Medications Lactated Ringer's (Lr) 1,000 mls @ 100 mls/hr IVCONT .Q10H BLAKE Last Admin: 04/30/24 08:34 Dose: 100 mls/hr Home Medications ?Medication ?Instructions ?Recorded ?Confirmed ?Last Taken ?Type cetirizine 10 mg tablet (Allergy 10 mg PO DAILY PRN Allergy Symptoms 06/21/23 04/30/24 04/30/24 History Relief (cetirizine)) estradiol 0.5 mg tablet 0.5 mg PO DAILY 06/21/23 04/30/24 Unknown History estradiol 1 mg tablet 1 mg PO DAILY 06/21/23 04/30/24 Unknown History Lactobacillus cap PO 12/05/23 02/27/24 Unknown History reuteri-Lactobacillus rhamnosus 5 billion cell capsule (RepHresh Pro-B) aspirin 81 mg tablet 81 mg PO DAILY 12/05/23 04/30/24 04/23/24 History d-mannose 500 mg capsule 1,000 mg PO DAILY 12/05/23 04/30/24 Unknown History fluticasone propionate 50 1 spray intranasal DAILY 12/05/23 04/30/24 Unknown History mcg/actuation nasal spray,suspension Exam Height,Weight and Vital Signs: Height 5 ft 4 in Weight 104.326 kg Last Vital Signs Temp 98.1 F 04/30/24 08:37 Pulse 85 04/30/24 08:37 Resp 18 04/30/24 08:37 BP 113/84 04/30/24 08:37 Pulse Ox 98 04/30/24 08:37 O2 Del Method Room Air 04/30/24 08:37 Pertinent Lab Results Pertinent Lab Results: Laboratory Tests 04/30/24 08:15 Urine Test NEGATIVE Airway Mallampati Class: III TM Dist: >3cm Neck ROM: Full Heart: RRR Lungs: CTA Assessment and Plan Assessment Anesthesia Assessment: Anesthesia Plan Discussed and Chart Reviewed Final Anesthetic Review Family History of Problems with Anesthesia: No History of Problems with Anesthesia: No NPO: Yes ASA Class: II Final Preanesthetic Review: Meds/Allgs Chart Reviewed, Consent Obtained/Reviewed and Anes Risks/Benef Reviewed Patient Risk: Low Procedure Risk: Low Anesthetic Plan Anesthetic Plan: MAC: Disposition: Standard PACU
--- NOTE | 2024-04-30 09:45 | HO.ANESPROP2 ---
[facility] Active Problems Active Problems: All Active Problems Dyslipidemia (Acute) Morbid obesity (Acute) Encounter for routine adult physical exam with abnormal findings (Acute) Pre-op examination (Acute) Obesity (Acute) Screening for colon cancer (Acute) Back pain (Acute) Past Medical History Medical History Hypercholesteremia Functional capacity: independent ambulation Family History Family History Mother Diabetes Uterine cancer Father Heart attack Family history of problems with anesthesia: No Surgical History Surgical History S/P LASIK surgery of both eyes Hx of section S/P cholecystectomy Hx of laparoscopic gastric banding Hx of tonsillectomy History of Problems with Anesthesia: No Social History Social History Are you a primary primary health care nurse to a significant other at home: No Do you presently have visiting nurse or other home services: No Alcohol intake: current Alcohol intake frequency: holidays/special occasions only Alcohol type: beer and hard liquor Patient Tobacco Use Status: Never used Tobacco e-Cigarette/Vaping Use: Never Used Have you been hit, kicked, punched, or otherwise hurt by someone within the past year? If so, by whom?: No Are you DNR?: No Advance Directives: No Advance Directives Information Provided: Yes Recently lost weight without trying: No Nutrition Risks: No Nutritional Risk Patient : No FDLMP: uknown due to mirena service: No Current occupational status: employed Current occupation: teacher, [employer] Cognitive needs: No Hearing needs: No Vision needs: No Meds Allergies Allergy/AdvReac Type Severity Reaction Status Date / Time azithromycin Allergy Severe Unknown Verified 04/30/24 08:29 cat dander Allergy Severe Itching Verified 04/30/24 08:29 dog dander Allergy Severe Rash Verified 04/30/24 08:29 latex Allergy Severe rash Verified 04/30/24 08:29 Seasonal Allergies Allergy Severe Rash Verified 04/30/24 08:29 Active Medications: Current Medications Lactated Ringer's (Lr) 1,000 mls @ 100 mls/hr IVCONT .Q10H BLAKE Last Admin: 04/30/24 08:34 Dose: 100 mls/hr Home Medications ?Medication ?Instructions ?Recorded ?Confirmed ?Last Taken ?Type cetirizine 10 mg tablet (Allergy 10 mg PO DAILY PRN Allergy Symptoms 06/21/23 04/30/24 04/30/24 History Relief (cetirizine)) estradiol 0.5 mg tablet 0.5 mg PO DAILY 06/21/23 04/30/24 Unknown History estradiol 1 mg tablet 1 mg PO DAILY 06/21/23 04/30/24 Unknown History Lactobacillus cap PO 12/05/23 02/27/24 Unknown History reuteri-Lactobacillus rhamnosus 5 billion cell capsule (RepHresh Pro-B) aspirin 81 mg tablet 81 mg PO DAILY 12/05/23 04/30/24 04/23/24 History d-mannose 500 mg capsule 1,000 mg PO DAILY 12/05/23 04/30/24 Unknown History fluticasone propionate 50 1 spray intranasal DAILY 12/05/23 04/30/24 Unknown History mcg/actuation nasal spray,suspension Exam Height,Weight and Vital Signs: Height 5 ft 4 in Weight 104.326 kg Last Vital Signs Temp 98.1 F 04/30/24 08:37 Pulse 85 04/30/24 08:37 Resp 18 04/30/24 08:37 BP 113/84 04/30/24 08:37 Pulse Ox 98 04/30/24 08:37 O2 Del Method Room Air 04/30/24 08:37 Pertinent Lab Results Pertinent Lab Results: Laboratory Tests 04/30/24 08:15 Urine Test NEGATIVE Assessment and Plan Assessment Anesthesia Assessment: Anesthesia Plan Discussed and Chart Reviewed Final Anesthetic Review Family History of Problems with Anesthesia: No History of Problems with Anesthesia: No ASA Class: II Final Preanesthetic Review: Meds/Allgs Chart Reviewed, Consent Obtained/Reviewed and Anes Risks/Benef Reviewed Patient Risk: Low Procedure Risk: Low Anesthetic Plan Anesthetic Plan: MAC: Disposition: Standard PACU
--- NOTE | 2024-04-30 09:50 | P.OPN-COLO_ITS ---
Colonoscopy Operative Note Operative Note Date of Service: 04/30/24 Narrative: Procedure: Colonoscopy Indication: Screening Endoscopist: Claudette Medina MD Anesthesia Provider: Flores Trinidad MD Anesthesia type: MAC Instrument: Olympus [id number] Consent: Indication, risks vs benefits, and alternatives were discussed with the patient who gave written informed consent to proceed. EKG, pulse, pulse oximetry and blood pressure were monitored throughout the procedure. Please see anesthesia flowsheet. Procedure: A size L colowrap was fastened on the patient in pre-op. The patient was brought to the procedure room and placed in the left lateral decubitus position. IV medications were administered by the anesthesia provider in attendance. A digital rectal exam was performed which was abnormal A distal attachment cap was affixed to the tip of the colonoscope which was then inserted through the anus and advanced through the colon to the cecum at 80 cm and terminal ileum. Appendiceal orifice and ileocecal valve were identified. Mucosa was carefully examined under high definition white light as the instrument was slowly withdrawn in a retrograde panoramic fashion. Retroflexion was performed in rectum. The procedure was not difficult. There were no immediate obvious complications. The quality of the prep was BBPS: 2+2+3 = adequate Withdrawal time 13 minutes. Limitations: No limitations. Findings: Mucosa: Normal to cecum and terminal ileum. Protruding lesions: * Large internal hemorrhoids without stigmata of recent bleeding. Excavated lesions: * Mild diverticulosis of sigmoid colon. Impression: 1. Normal colon and terminal mucosa 2. Diverticulosis 3. External and internal hemorrhoids Recommendations: - repeat colonoscopy for colorectal cancer screening in 10 years
[2024-04-30 09:54] VITALS: BP 104/64; PULSE 82; RESP 16; TEMP 36.1; O2SAT 95
[2024-04-30 10:07] VITALS: BP 103/63; PULSE 90; RESP 16; TEMP 36.2; O2SAT 96
== END 2024-04-30 10:45 | disposition home or self-care (01) ==
PROVIDERS: Anesthesiology; PCP Nurse Practitioner Family; Visit Provider Internal Medicine
PROC: 0DJD8ZZ Inspection of Lower Intestinal Tract, Via Natural or Artificial Opening Endoscopic (ICD-10-PCS; CPT 45378; principal; 2024-04-30 09:20)
DX: Z12.11 Encounter for screening for malignant neoplasm of colon (principal); K57.30 Diverticulosis of large intestine without perforation or abscess without bleeding; K64.8 Other hemorrhoids; K64.4 Residual hemorrhoidal skin tags
CPT/HCPCS: 45378; 81025; J2003; J2704

== ENCOUNTER → 2024-04-30 07:51 | Outpatient (BNV) | payer OTHER, SELFPAY | PROVIDERS: PCP Nurse Practitioner Family; Visit Provider Internal Medicine | DX: Z12.11 Encounter for screening for malignant neoplasm of colon (principal); K57.30 Diverticulosis of large intestine without perforation or abscess without bleeding; K64.8 Other hemorrhoids | CPT/HCPCS: 45378 ==

== ENCOUNTER 2024-06-27 16:02 | Outpatient (AMB) | payer OTHER, SELFPAY ==
[2024-06-27 16:09] VITALS: BP 110/78; PULSE 90; TEMP 36.6; O2SAT 97; BMI 37.8
--- NOTE | 2024-06-27 16:09 | A.OFFPC_ITS ---
Vital Signs 06/27/24 16:09 Height 5 ft 4 in Weight 220 lb BMI 37.8 BP 110/78 Blood Pressure Location Lt brachial Position Sitting Pulse 90 Pulse Source Pulse Oximeter Temp 97.9 F Temp Source Oral Pulse Oximetry (%) 97 Intake Visit Reasons: Diff swallowing Intake Note: pt is here for concerns about difficulty swallowing Allergies azithromycin Allergy (Severe, Verified 06/27/24 16:09) Unknown cat dander Allergy (Severe, Verified 06/27/24 16:09) Itching dog dander Allergy (Severe, Verified 06/27/24 16:09) Rash latex Allergy (Severe, Verified 06/27/24 16:09) rash Seasonal Allergies Allergy (Severe, Verified 06/27/24 16:09) Rash atorvastatin Adverse Reaction (Mild, Verified 06/27/24 19:09) Weakness Medication List - Last Reconciled 06/27/24 by NOHEMI Antoine- aspirin 81 mg PO DAILY cetirizine (Allergy Relief (cetirizine)) 10 mg PO DAILY PRN d-mannose 1,000 mg PO DAILY estradiol 1 mg PO DAILY estradiol 0.5 mg PO DAILY fluticasone propionate 50 mcg/actuation 1 spray intranasal DAILY L. reuteri-L. rhamnosus 5 billion cell (RepHresh Pro-B) caps PO Tobacco use date assessed: 06/27/24 Dental Screening Dental Screen Date: 06/27/24 Did you have a dental visit in the last 12 months?: Yes Did you have a dental problem in the last 6 months where you did not have access to dental care?: No Was dental information given to patient?: Patient has dentist HPI Diff swallowing HPI Details Chief Complaint The patient presents with concerns about diverticulosis. History of Present Illness The patient is a 49-year-old female presenting with concerns about diverticulosis, which was diagnosed during a recent colonoscopy. She was advised to manage the condition by increasing dietary fiber and avoiding constipation, as well as being cautious with certain foods (sun flower seeds, popcorn). She has a history of obesity, noted during this consultation, and previously underwent a gastric sleeve procedure. Insurance for a GLP 1 agonist which I really think would help her. Additionally, there was a notification of observed sleep apnea following anesthesia. She denies other acute gastrointestinal symptoms and reports no new concerning symptoms at this time. Patient further describes having some dysphagia, recently most recently choking on a pill, she further reports that she can choke on liquids and solids intermittently. Social History - History of having a gastric sleeve pro cedure, indicating previous morbid obesity and weight management efforts. - No details mentioned about current emp loyment, education, or family status. - Dietary habits discussed in context of diverticulosis management. Health Maintenance - Discussion on increasing fiber intake as part of managing diverticulosis. - Emphasis on avoidance of constipation. - Monitoring for small food particles li ke seeds that could exacerbate diverticulosis. Review of Systems - Gastrointestinal: Denies abdominal hortensia n, blood in stool, constipation, or diarrhea. - Respiratory: Denies chest pain or shor tness of breath. - Reports occasional dysphagia, especial ly with pills. Physical Exam General: Cooperative, healthy appearing, comfortable, no acute distress and well developed, obese Orientation: Patient oriented x3 Limitations: No limitations Head: Normal to inspection Ears: Hearing grossly normal bilaterally Nose: Normal external nose present Face and sinus: Normal facial exam Eyes: Appearance normal, both eyes and all related structures Neck: Normal visual inspection and Yes full ROM Respiratory: Normal respiratory effort and able to speak in complete sentences. Clear to auscultation bilaterally Cardiovascular: Regular rate and rhythm. Normal S1 and S2 GI: Normal to inspection. Soft to palpation and nontender Skin: No rashes or lesions noted Neuro: Patient oriented x3 Extremities: Normal to inspection Results - Colonoscopy confirmed diagnosis of div erticulosis. Plan To address her diverticulosis, I have advised on dietary modifications involving increased fiber intake and avoiding particular foods like seeds. Despite insurance denial for GLP-1 agonist therapy, the patient will be referred to medical weight management for further assessment. Additionally, a referral to sleep medicine is arranged for evaluation of sleep apnea noted post-anesthesia. Furthermore, a swallow study is planned due to reported difficulties swallowing, especially with pills. Discussion Notes During our discussion, I emphasized the importance of managing diverticulosis through dietary changes, specifically increasing fiber and avoiding constipation and foods like seeds. We reviewed options for addressing her morbid obesity and considered a referral to medical weight management after insurance declined the GLP-1 agonist. Regarding the discovery of sleep apnea, referral to sleep medicine was agreed upon for further investigation. Consent was obtained for all planned referrals and procedures, and the patient was instructed to follow up accordingly. Patient Instructions - Increase dietary fiber to help manage diverticulosis and maintain regular bowel movements. - Avoid eating small seeds and similar f oods that may affect diverticula. - Follow up with medical weight manageme nt as referred for further evaluation and potential therapies. - Attend sleep specialist consultation a s referred to address observed sleep apnea. - Participate in scheduled swallow study to assess swallowing difficulties. [facility] Medical History (Updated 06/27/24 @ 19:10 by Sang Jolly, [facility]) Hypercholesteremia Surgical History (Updated 06/27/24 @ 16:12 by Ron Toney [facility]) S/P colon resection S/P LASIK surgery of both eyes Hx of section S/P cholecystectomy Hx of laparoscopic gastric banding Hx of tonsillectomy Family History Mother Diabetes Uterine cancer Father Heart attack Social History Are you a primary resident care spec to a significant other at home: No Do you presently have visiting nurse or other home services: No Alcohol intake: current Alcohol intake frequency: holidays/special occasions only Alcohol type: beer and hard liquor Patient Tobacco Use Status: Never used Tobacco e-Cigarette/Vaping Use: Never Used service: No Current occupational status: employed Current occupation: teacher, [employer] Cognitive needs: No Hearing needs: No Vision needs: No Questionnaire PHQ-9 Over the last 2 weeks, how often have you been bothered by any of the following problems? 1. Little interest or pleasure in doing things: not at all 2. Feeling down, depressed, or hopeless: not at all 3. Trouble falling or staying asleep, or sleeping too much: several days 4. Feeling tired or having little energy: several days 5. Poor appetite or overeating: not at all 6. Feeling bad about yourself - or that you are a failure or have let yourself or your family down: not at all 7. Trouble concentrating on things, such as reading the newspaper or watching television: not at all 8. Moving or speaking so slowly that other people could have noticed. Or the opposite - being so fidgety or restless that you have been moving around a lot more than usual: not at all 9. Thoughts that you would be better off or of hurting yourself in some way: not at all Total score: 2 Depression Screening Interpretation: Negative Depression Screening Done: Yes 88690 - PHQ-9 Billing: Yes Source: Developed by Drs. Leroy Becerril, Vanessa Brooks, Narendra Proctor and colleagues, with an educational tessy from [employer]. Thrive Questionnaire Date Thrive assessed: 06/27/24 I am a: Patient What is your living situation today?: I have a steady place to live Within the past 12 months, did the food you bought not last and you didn't have the money to get more?: Never true Within the past 12 months, did you worry whether your food would run out before you got money to buy more?: Never true Do you have trouble paying for medicines?: No Do you have trouble getting transportation to medical appointments?: No Do you have trouble paying your heating and electricity bill?: No Do you have trouble taking care of your child, family member or friend?: No Do you have trouble with day-to-day activities such as bathing, preparing meals, shopping, managing finances, etc.?: No Are you currently unemployed and looking for a job?: No Are you interested in more education?: No Please select the resources that you would like help with: None Currently or been in a relationship where the following occur: No concerns reported THRIVE Score: 0 AUDIT C Alcohol Use Questionnaire (AUDIT-C) 1. How often do you have a drink containing alcohol?: Monthly or less 2. How many drinks containing alcohol do you have on a typical day when you are drinking?: 1 or 2 3. How often do you have six or more drinks on one occasion?: Never Total Score: 1 Score Reviewed/Action Taken: Yes YOVANI-7 AMB Questionnaire YOVANI-7 Date YOVANI - 7 assessed: 06/27/24 Feeling nervous, anxious, or on edge: 0 = Not at all Not being able to stop or control worryin = Not at all Worrying too much about different things: 0 = Not at all Trouble relaxin = Not at all Being so restless that it is hard to sit still: 0 = Not at all Becoming easily annoyed or irritable: 1 = Several days Feeling afraid as if something awful might happen: 0 = Not at all Total YOVANI-7 score (0-4 normal; 5-9 mild; 10-14 moderate; 15-21 severe): 1 Source: Developed by Drs. Leroy Becerril, Vanessa Brooks, Narendra Proctor and colleagues, with an educational tessy from [employer]. YOVANI-7 Assessment Billing YOVANI-7 Assessment Tool: YOVANI-7 Assessment 44379 Physical exam (Primary Care) Vital Signs: Last Vital Signs Temp 97.9 F 06/27/24 16:09 Pulse 90 06/27/24 16:09 BP 110/78 06/27/24 16:09 Pulse Ox 97 06/27/24 16:09 BMI result Body Mass Index 37.8 Tobacco/Smoking Status: Tobacco use Status Tobacco use date assessed 06/27/24 06/27/24 16:11 Patient Tobacco Use Status Never used Tobacco 06/27/24 16:11 e-Cigarette/Vaping Use Never Used 06/27/24 16:11 PHQ-9: PHQ-9 Score PHQ-9: Total score 2 06/27/24 16:11 Depression Screening Interpretation: Negative Thrive Assessment: Date of Thrive Assessment Date Thrive assessed 06/27/24 06/27/24 16:11 Currently or been in a relationship where the following occur: No concerns reported Coding Level of Care Code Est Pt Level 3 (14296) Diagnoses Dysphagia R13.10 Sleep apnea G47.30 Obesity E66.9 Diverticulosis K57.90 Additional Codes YOVANI-7 Assessment Billing - YOVANI-7 Assessment Tool: YOVANI-7 Assessment 04575 ([id number]) PHQ-9 - 95777 - PHQ-9 Billing: Yes ([id number]) Assessment & Plan Assessment & Plan (1) Dysphagia: Code(s): R13.10 - Dysphagia, unspecified Category: Medical (2) Sleep apnea: Code(s): G47.30 - Sleep apnea, unspecified Category: Medical (3) Obesity: Code(s): E66.9 - Obesity, unspecified Category: Medical (4) Diverticulosis: Code(s): K57.90 - Diverticulosis of intestine, part unspecified, without perforation or abscess without bleeding Category: Medical Plan . Orders: Orders FL Modified Barium Swallow Today R13.10 - Dysphagia, unspecified Referrals Sleep Medicine Referral G47.30 - Sleep apnea, unspecified Medical Weight Management Referral E66.9 - Obesity, unspecified
--- OUTSIDE RECORDS SUMMARY | 2024-06-27 19:18 | XMS_ITS | Clinical Summary ---
Author Organization [facility] it Address [address] [place] [address] Care Team Providers Care Community Engagement Representative Name Role Phone Jack Almendarez DO Primary Care Provider [phone] Surgical History Surgery Date Site/Laterality Comments GASTRIC BYPASS 01/18/05 PROCEDURE: ID GASTRIC RSTCV W/BYP W/SM INT RCNSTJ LIMIT ABSRPJ; COMMENT: weighed 228 pounds at the highest TONSILLECTOMY PROCEDURE: HISTORICAL TONSILLECTOMY CHOLECYSTECTOMY 09/2005 PROCEDURE: ID CHOLECYSTECTOMY SECTION 12/20/07 PROCEDURE: HISTORICAL DELIVERY Medical History Medical History Date Comments Obesity, unspecified DX:Obesity, unspecified Anemia, unspecified DX:Anemia, u nspecified Anxiety state, unspecified DX:An xiety state, unspecified Other specified personal his tory presenting hazards to health(V15.89) DX:Other specifie d personal history presenting hazards to health(V15.89) Migraine DX:Migraine Family History Medical History Relation Name Comments Other: half sibling Brother 1 Other: half sibling Brother 2 Heart attack Father age 65 Heart attack Maternal Grandfather Lung cancer Maternal Grandfather Diabetes Maternal Grandmother Heart failure Maternal Grandmother Diabetes Mother Stroke Mother 2010 Diabetes Paternal Grandfather Hypertension Paternal Grandfather Other: DVD/PE Sister 1 Breast cancer Neg Hx Colon cancer Neg Hx Ovarian cancer Neg Hx Prostate cancer Neg Hx Uterine cancer Neg Hx Relation Name Status Comments Brother 1 Brother 2 Daughter Alive Father Maternal Grandfather Maternal Grandmother Mother Alive Paternal Grandfather Paternal Grandmother Sister 1 Alive Sister 2 Alive Social History Tobacco Use Types Packs/Day Years Used Date Smoking Tobacco: Never Smokeless Tobacco: Never Alcohol Use Standard Drinks/Week Comments No 0 (1 standard drink = 0.6 oz pur e alcohol) Comments Unknown Sex and Gender Information Value Date Recorded Sex Assigned at Not on file Legal Sex Female 5:20 PM EST Gender Identity Not on file Sexual Orientation Not on file Obstetrics History Plan of Treatment Upcoming Encounters Date Type Department Care Team ([facility] st Contact Info) Description 07/16/2024 3:10 PM EDT Appointment Radiology Department [address] [address] Health Maintenance Due Date Last Done Comments Hepatitis B Vaccines (1 of 3 - 19+ 3-dose series) 1992 Cervical Cancer Screening: HPV 1994 Colorectal Cancer Screening: Colonoscopy 03/26/2022 Depression Screening 03/26/2022 HIV Screening 03/26/2022 Hepatitis C Screening 03/26/2022 Social Influencers of Health Screening 03/26/2022 DTaP,Tdap,and Td Vaccines (3 - Td or Tdap) 11/27/2022 11/27/2012, 01/06/2010 Pneumococcal Vaccine: 50+ Years (1 of 1 - PCV) 2023 Zoster Vaccines (1 of 2) 2023 COVID-19 Vaccine (3 - season) 2023 07/20/2020, 06/29/2020 Influenza Vaccine (#1) 2023 0, 01/01/2019, 12/18/2018, Additional history exists Breast Cancer Screening 07/10/2025 07/11/19 24, 07/11/2023, 07/07/2022, Additional history exists HIB Vaccines Aged Out No longer eligi ble based on patient's age to complete this topic HPV Vaccines Aged Out No longer eligi ble based on patient's age to complete this topic Hepatitis A Vaccines Aged Out No long er eligible based on patient's age to complete this topic IPV Vaccines Aged Out No longer eligi ble based on patient's age to complete this topic MMR Vaccines Aged Out No longer eligi ble based on patient's age to complete this topic Meningococcal ACWY Vaccine Aged Out N o longer eligible based on patient's age to complete this topic Meningococcal B Vacine Aged Out No lo nger eligible based on patient's age to complete this topic Pneumococcal Vaccine: Pediatrics (0 to 5 Years) and At-Risk Patients (6 to 64 Years) Aged Out No longer eligible based on patient's age to complete this topic RSV Immunization Patients Under 20 months Aged Out No longer eligible based on patient's age to complete this topic Varicella Vaccines Aged Out No longer eligible based on patient's age to complete this topic Procedures Procedure Name Priority Date/Time Associated Diagnosis Comments SCREENING MAMMOGRAPHY BI 2-VIEW BREAST INC CAD Routine 07/11/2023 3:35 PM EDT Encounter for other screening for malignant neoplasm of breast from Last 3 Months or Most Recently Relevant to Health Maintenance Results * SCREENING MAMMOGRAPHY BI 2-VIEW BREAST INC CAD (07/11/2023 3:35 PM EDT) Anatomical Region Laterality Modality Radiographic Jazmin ging 07/07/2022 3:07 PM EDT Narrative 07/12/2023 4:09 PM EDT This is a summary report. The complete report is available in the patient's medical record. If you cannot access the medical record, please contact the sending organization for a detailed fax or copy. Full field digital screening 2D C views and tomosynthesis mammography, reviewed with CAD and compared to previous. The breasts are composed of fatty and fibroglandular tissue. ??No suspicious mass, architectural distortion or suspicious calcifications are identified. IMPRESSION: : No mammographic evidence of malignancy. BIRADS 1-Negative; N. 5 year breast cancer risk assessment 1.5 % Lifetime breast cancer risk assessment 13.3 % Breast cancer risk category Low (<15%) Procedure Note Selma Rojas MD - 12/04/2023 This is a summary report. The complete report is available in thepatient's medical record. If you cannot access the medical record, pleasecontact the sending organization for a detailed fax or copy. Full field digital screening 2D C views and tomosynthesis mammography,reviewed with CAD and compared to previous. The breasts are composed offatty and fibroglandular tissue. No suspicious mass, architecturaldistortion or suspicious calcifications are identified. IMPRESSION: : No mammographic evidence of malignancy. BIRADS 1-Negative; N. 5 year breast cancer risk assessment 1.5 % Lifetime breast cancer risk assessment 13.3 % Breast cancer risk category Low (<15%) us Ellen Reyes MD IMG XR PROCEDURES Final Resu lt from Last 3 Months or Most Recently Relevant to Health Maintenance Care Teams Community Engagement Representative Relationship Specialty Start Date End Date Jack Almendarez DO PCP - General Internal Medicine 09/16/21
== END 2024-06-27 17:00 | disposition home or self-care (01) ==
LOC: HO.HMCC 16:02
PROVIDERS: PCP Nurse Practitioner Family; Visit Provider Nurse Practitioner Family
DX: R13.10 Dysphagia, unspecified (principal); G47.30 Sleep apnea, unspecified; E66.9 Obesity, unspecified; Z68.37 Body mass index [BMI] 37.0-37.9, adult; K57.90 Diverticulosis of intestine, part unspecified, without perforation or abscess without bleeding

== ENCOUNTER → 2024-06-27 16:02 | Outpatient (BNVA) | payer OTHER, SELFPAY | PROVIDERS: PCP Nurse Practitioner Family; Visit Provider Nurse Practitioner Family | DX: R13.10 Dysphagia, unspecified (principal); G47.30 Sleep apnea, unspecified; E66.9 Obesity, unspecified; Z68.37 Body mass index [BMI] 37.0-37.9, adult; K57.90 Diverticulosis of intestine, part unspecified, without perforation or abscess without bleeding | CPT/HCPCS: 96127 ==

== ENCOUNTER 2024-09-05 05:35 | Outpatient (REF) | payer OTHER, SELFPAY ==
--- NOTE | ~2024-09-05 | CT_ITS ---
EXAMINATION: CT ABDOMEN PELVIS WITHOUT IV CONTRAST HISTORY: Z98.84 - Bariatric surgery status COMPARISON: There are no prior studies for comparison. TECHNIQUE: CT scan of the abdomen and pelvis was performed without contrast using standard departmental protocol. Coronal and sagittal reformatted images were generated and reviewed. Oral contrast material was not administered at the request of the referring physician. This CT exam was performed with one or more of the following dose reduction techniques: automated exposure control, adjustment of the mA and/or kV according to patient size, use of iterative reconstruction technique. DLP: 704 mGy-cm FINDINGS: LOWER CHEST: The visualized lung bases are clear. There is no pleural effusion. CARDIOVASCULATURE: The heart is normal in size. There is no pericardial effusion. LIVER: The liver is normal in size and contour. The liver has an unremarkable unenhanced appearance. GALLBLADDER / BILE DUCTS: The gallbladder is surgically absent. There is no intra or extrahepatic biliary ductal dilatation. SPLEEN: The spleen is normal in size and has an unremarkable unenhanced appearance. PANCREAS: The pancreas has an unremarkable unenhanced appearance. ADRENAL GLANDS: Unremarkable. KIDNEYS/RETROPERITONEUM: No renal calculi are identified. There is no hydronephrosis. LYMPH NODES: No retroperitoneal lymphadenopathy is identified in the abdomen or pelvis. VASCULATURE: The abdominal aorta is normal in caliber. MESENTERY/PERITONEUM: No free fluid. No masses. There is no free intraperitoneal gas. STOMACH: There is a small hiatal hernia. The patient is status post laparoscopic gastric band procedure. The stomach is collapsed. SMALL BOWEL: The small bowel is normal in caliber. COLON: The colon is unremarkable. APPENDIX: Normal. URINARY BLADDER/PELVIC ORGANS: The urinary bladder is collapsed, limiting evaluation. An IUD is noted in the endometrial cavity of the uterus. The ovaries are normal in size. BONES / SOFT TISSUES: No suspicious bony or soft tissue abnormalities. CT/CT abdomen pelvis wo IV con IMPRESSION: Status post laparoscopic gastric band procedure. Small hiatal hernia. Electronically signed by: Leroy Sher MD 09/05/2024 07:28 AM EDT
== END 2024-09-05 05:36 | disposition home or self-care (01) ==
LOC: HO.CT 05:35
PROVIDERS: PCP Nurse Practitioner Family; Visit Provider Nurse Practitioner Family
DX: R10.9 Unspecified abdominal pain (principal); Z98.84 Bariatric surgery status
CPT/HCPCS: 74176

== ENCOUNTER → 2024-09-05 05:38 | Outpatient (BNV) | payer OTHER, SELFPAY | PROVIDERS: PCP Nurse Practitioner Family; Visit Provider Radiology Diagnostic Radiology | DX: K44.9 Diaphragmatic hernia without obstruction or gangrene (principal) | CPT/HCPCS: 74176 ==

== ENCOUNTER 2024-09-30 14:18 | Outpatient (REF) | payer OTHER, SELFPAY ==
--- NOTE | ~2024-09-30 | FL_ITS ---
EXAMINATION: Modified Barium Swallow CLINICAL INFORMATION: Dysphagia COMPARISON: None TECHNIQUE: Modified barium swallow was performed under lateral fluoroscopy with patient in standing position. Barium mixed with solids and liquids of different consistencies was administered by the speech pathologist. Examination was recorded in the fluoroscopy suite. FINDINGS: No evidence of laryngeal penetration, glottic or subglottic aspiration. There was mild cricopharyngeal achalasia noted. FLUOROSCOPY TIME: 1 minute 37 seconds Number of Spot Images: N/A DOSE AREA PRODUCT: 1381 uGy-m2 (microgray-meter squared) FL/FL Modified Barium Swallow IMPRESSION: 1. No evidence of laryngeal penetration or glottic or subglottic aspiration. 2. Mild cricopharyngeal achalasia noted. Please refer to the speech therapy report for further details. Electronically signed by: Thompson Huertas MD 09/30/2024 03:33 PM EDT
--- NOTE | 2024-09-30 15:55 | MHC.SL.IMP ---
Date of Plan of Treatment: 09/30/24 Onset of Symptoms/Illness: 04/17/22 Date Treatment Started: 09/30/24 Admitting Diagnosis: Diverticulosis, hiatal hernia Primary Speech & Language Diagnosis: R13.19 Other Dysphagia Reason for Today's Visit: 39019 Modified Barium Swallow Study Pre-evaluation Dietary Consistencies: Regular Pre-evaluation Liquid Consistency: Thin Pre-evaluation Medication Administration: Whole with Liquid Medical History: Modified Barium Swallow Study Fluoroscopic Evaluation of Swallowing Function CPT Code 15857 Evaluation Year: 2024 Reason for Study: Patient reporting difficulty swallowing. Referring Physician: Sang SUH Evaluating Clinician: Rosalia Bloom MA, CCC-SOAP GRINDER Study Number: 1 Patient Name: Lona Silva Status: Outpatient, Ambulatory Age: 49 Sex: Female Medical History Medical History (Updated 06/27/24 @ 19:10 by [facility] Hypercholesteremia Surgical History (Updated 06/27/24 @ 16:[address] [facility]) S/P colon resection S/P LASIK surgery of both eyes Hx of section S/P cholecystectomy Hx of laparoscopic gastric banding Hx of tonsillectomy Current (pre-evaluation) Intake/Diet: Route: PO Diet Grade: Regular Liquid Consistencies: Thin Pre-Study Functional Oral Intake Scale (FOIS): 7- Total oral intake with no restrictions Pain: None reported at time of study SUBJECTIVE: Patient is a 49 year old female referred for a modified barium swallow study by her primary care provider, Sang Jolly [facility], due to patient reporting difficulty swallowing. Patient reports onset of dysphagia approximately 2.5 years ago. She reports food and liquids getting stuck at the level of mid-sternum and needing to swallow hot water before swallowing to ?warm up the muscles.? Patient denies odynophagia. She reportedly had an episode of choking on a large pill recently and needed to swallow multiple sips of hot tea in order to ?help dissolve the pill and clear it.? Patient also notes history of postnasal drip, associated chronic throat clearing and reflux, which was quite severe and kept her up at night. She was started on omeprazole a few months ago after an Urgent Care visit, and reports some improvement in her symptoms when taking the medication during the day. Patient was diagnosed with diverticulosis after a recent colonoscopy. Patient says she also had a recent CT scan which found a hiatal hernia. Medical history includes gastric sleeve procedure. Oral Motor Exam Facial Symmetry: Symmetrical Mouth Occlusion: Normal Oral-Facial Teeth Characteristics: Intact/Normal Oral-Facial Teeth Miscellaneous Observation: Natural dentition w/ implants Tongue Size: Normal Is patient able to manage secretions?: Yes Is patient able to produce volitional cough?: Yes Food and Liquid Trials: Oral Impairment: Lip Closure: 0=No labial escape Oral Impairment: Tongue Control During Bolus Hold: 0=Cohesive bolus between tongue to palatal seal Oral Impairment: Bolus Preparation/Mastication: 0=Timely and efficient chewing and mashing Oral Impairment: Bolus Transport/Lingual Motion: 0=Brisk tongue motion Oral Impairment: Oral Residue: 1=Trace residue lining oral structures Oral Impairment:Initiation of Pharyngeal Swallow: 1=Bolus head in valleculae Pharyngeal Impairment: Soft Palate Elevation: 0=No bolus between soft palate (SP)/pharyngeal wall (PW) Pharyngeal Impairment: Laryngeal Elevation: 0=Complete superior movement of thyroid cartilage (see description) Pharyngeal Impairment: Anterior Hyoid Excursion: 0=Complete anterior movement Pharyngeal Impairment: Epiglottic Movement: 0=Complete inversion Pharyngeal Impairment: Laryngeal Vestibular Closure:: 0=Complete: no air/contrast in laryngeal vestibule Pharyngeal Impairment: Pharyngeal Stripping Wave: 0=Present: complete Pharyngeal Impairment: Pharyngeal Contraction: Did not test Pharyngeal Impairment: Pharyngoesophageal Segment Openin=Partial distention/partial duration: partial obstruction of flow Pharyngeal Impairment: Tongue Base (TB) Retraction: 0=No contrast between tongue base and posterior pharyngeal wall Pharyngeal Impairment: Pharyngeal Residue: 0=Complete pharyngeal clearance Pharyngeal Impairment: Esophageal Clearance Upright Position: Did not test Impressions and Recommendations Clinical Observations: OBJECTIVE: Time-out: performed at 14:45 Evaluation Start: 14:30; Stop: 14:40 Patient Positioning: Standing Viewing Planes: LATERAL ONLY Contrast: MBSImP? Standardized Protocol using commercially prepared, standardized Barium viscosities, including: Varibar? THIN LIQUID (40% w/v, <15 cps) , Varibar? PUDDING (40% w/v, <7471-5994 cps) , 1/2 Shortbread Cookie (1 x1 x.25 ) MBSImP ID: [id number] MBSImP Results: Lip closure for intraoral bolus containment resulted in no labial escape. Tongue control during bolus hold maintained a cohesive bolus held between tongue to palate seal. Bolus preparation and mastication resulted in timely and efficient chewing and mashing. Bolus transport/lingual motion was with brisk tongue motion. Oral residue was a trace, lining oral structures. Initiation of the pharyngeal swallow occurred when the bolus head was in the valleculae. Soft palate elevation resulted in no bolus between the soft palate and the pharyngeal wall. Laryngeal elevation demonstrated complete superior movement of the thyroid cartilage with complete approximation of the arytenoids to the epiglottic petiole. Anterior hyoid excursion demonstrated complete anterior movement. Epiglottic movement resulted in complete inversion. Laryngeal vestibular closure was complete, as indicated by no air or contrast within the laryngeal vestibule at the height of the swallow. Pharyngeal stripping wave was present and complete. Pharyngeal contraction could not be determined due to logistical reasons not related to physiologic impairment. Pharyngoesophageal segment opening demonstrated partial distension/partial duration, with partial obstruction of bolus flow. Tongue base retraction allowed no contrast between the retracted tongue base and the posterior pharyngeal wall. Pharyngeal residue was not present. There was complete pharyngeal clearance. Esophageal clearance in the upright position could not be assessed due to logistical reasons not related to physiologic impairment. Oral Impairment Score: 1 Pharyngeal Impairment Score: 1 (absence of score, component 13) Esophageal Impairment Score: --- (absence of score, component 17) Laryngeal Penetration and Aspiration: Neither penetration nor aspiration was observed in today's study with Cookie, Pudding-thick, Thin. 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 ASSESSMENT: This exam was performed by the speech pathologist and the radiologist. Patient was standing for lateral view only and fed herself without difficulty. Patient trialed the following consistencies: Thin liquid (individual cup sips & rapid sequential cup sips) Puree (mixture applesauce w/ pudding barium) Regular (Rhina Doone cookie coated w/ pudding barium) Complete lip closure with no interlabial escape. Good tongue control, with patient maintaining cohesive bolus between tongue to palatal seal. No premature posterior escape seen. Timely and efficient mastication pattern. Brisk and timely AP transport. Complete oral clearance on thin and puree consistencies. There was trace residue coating the tongue on regular consistency, which cleared on self-initiated secondary swallow. Pharyngeal swallow trigger initiated as the bolus head reached the valleculae. No evidence of nasopharyngeal reflux. Complete laryngeal elevation with complete epiglottic inversion and complete laryngeal vestibular closure. No evidence of aspiration or penetration. Complete clearing of the valleculae and pyriforms. Noted mild cricopharyngeal achalasia without significant impact on pharyngeal clearance. After the exam, patient complained of globus sensation in her throat, with imaging showing complete oral and pharyngeal clearance. Liquid Intake Recommendation: Thin Liquid Intake Strategies: Unrestricted Dietary Recommendations: Regular Medication Administration: Whole with Liquid Please contact the pharmacy regarding appropriate crushable or liquid drug formulations that are available whenever modified delivery is recommended. Compensatory Strategies Recommended: Sitting Upright (90 deg), Small Bites and Sips, Alternate Liquids/Solids, Rate of Ingestion Change Recommendation for Speech Therapy: NA:Typical Evaluation Text Comment: Intake Recommendations: Route: PO Diet Grade: Regular Liquid Consistencies: Thin Post-Study Functional Oral Intake Scale (FOIS): 7- Total oral intake with no restrictions Overall, unremarkable exam. Good oral and pharyngeal clearance. No evidence of aspiration or penetration. Suggested Referrals: The patient might benefit from a referral to: Gastroenterology Indication for Referral: Patient reporting globus sensation, with MBSS showing good oral and pharyngeal clearance, noted mild cricopharyngeal achalasia. Hx diverticulosis & small hiatal hernia. Patient reports having chronic reflux, prescribed omeprazole by Urgent Care. Therapy Recommendations: Diet modification and further speech therapy is not warranted at this time, as swallow is deemed functional in the oral and pharyngeal phases. Patient may benefit from further workup w/ GI (upper GI series/barium swallow) d/t complaints of globus sensation and significant reflux; note hx diverticulosis & hiatal hernia. Clinician - Supplemental, Miscellaneous Communication: It is important to note MBSS objective studies are snapshots in time and Patient function might vary with factors such as time of day or concomitant medical conditions. For this reason, the final treatment plan for this patient should rest with their medical care team. Additional recommendations should be considered with the totality of the Patient in mind. Thank for the opportunity to participate in the care of this patient. If you have any questions about the content of this report, please contact the [facility] at [facility]. Education: Education regarding findings from today's study and plans for therapy were provided to Patient only through Verbal Instruction. Understanding was expressed by the Patient only. Obstetrical Nurse Clinician/Clinical Fellow: No Supervisory Statement: N/A Speech Language Pathologist: Rosalia Bloom M.A., [facility]-SOAP GRINDER
== END 2024-09-30 14:19 | disposition home or self-care (01) ==
LOC: HO.XRAY 14:18
PROVIDERS: Visit Provider Nurse Practitioner Family
DX: R13.10 Dysphagia, unspecified (principal)
CPT/HCPCS: 74230; 92611

== ENCOUNTER → 2024-09-30 14:30 | Outpatient (BNV) | payer OTHER, SELFPAY | PROVIDERS: Visit Provider Radiology Diagnostic Radiology | DX: R13.10 Dysphagia, unspecified (principal) | CPT/HCPCS: 74230 ==

== ENCOUNTER 2024-10-31 12:51 | Outpatient (AMB) | payer OTHER, SELFPAY ==
--- NOTE | 2024-10-31 12:53 | A.OFFVIS_ITS ---
Vital Signs 10/31/24 13:00 Height 5 ft 4 in BMI Reason not done Patient refused/unable BP 106/52 L Blood Pressure Location Rt brachial Position Sitting Pulse 88 Intake Visit Reasons: Consult ? EGD. Abd pain. BRADY 2023. Intake Note: Lona presents in the office as a follow up. CC: She states that she had a BA swallow and CT scan - here for results. Pains in the stomach - she was told she has a hiatal hernia and has horrible GERD - unable to sleep. She states that she wants to have the hernia taken care. She has an issue with swallowing. Allergies azithromycin Allergy (Severe, Verified 10/31/24 12:58) Unknown cat dander Allergy (Severe, Verified 10/31/24 12:58) Itching dog dander Allergy (Severe, Verified 10/31/24 12:58) Rash latex Allergy (Severe, Verified 10/31/24 12:58) rash Seasonal Allergies Allergy (Severe, Verified 10/31/24 12:58) Rash atorvastatin Adverse Reaction (Mild, Verified 10/31/24 12:58) Weakness HPI HPI Consult ? EGD. Abd pain. BRADY 2023.: Details: Assessment & Plan (1) Pre-op examination: Code(s): Z01.818 - Encounter for other preprocedural examination Category: Medical Plan This is her first colonoscopy. She generally does not have bowel problems, but she has had back pain and CIC just this once since she was on vacation - I recommend MOM, miralax and/or senna. No upper problems. She denies any cardiac or respiratory problems There are no prior problems with anesthesia or sedation. No ID problems. There is no known FHX of crc or polyps. Orders: Orders Colonoscopy - GI Use Only 12/05/23 Z01.818 - Encounter for other preprocedural examination Medications: New sodium,potassium,mag sulfates 17.5-3.13-1.6 gram (Suprep Bowel Prep Kit) 480 mL orally; FOR COLONOSCOPY PREP 354 mL 0RF COLONOSCOPY 04/30/24 Findings: Mucosa: Normal to cecum and terminal ileum. Protruding lesions: * Large internal hemorrhoids without stigmata of recent bleeding. Excavated lesions: * Mild diverticulosis of sigmoid colon. Impression: 1. Normal colon and terminal mucosa 2. Diverticulosis 3. External and internal hemorrhoids Recommendations: - repeat colonoscopy for colorectal cancer screening in 10 years * CT ABDOMEN AND PELVIS-ORDERED BY PCP 09/30/2024 FINDINGS: LOWER CHEST: The visualized lung bases are clear. There is no pleural effusion. CARDIOVASCULATURE: The heart is normal in size. There is no pericardial effusion. LIVER: The liver is normal in size and contour. The liver has an unremarkable unenhanced appearance. GALLBLADDER / BILE DUCTS: The gallbladder is surgically absent. There is no intra or extrahepatic biliary ductal dilatation. SPLEEN: The spleen is normal in size and has an unremarkable unenhanced appearance. PANCREAS: The pancreas has an unremarkable unenhanced appearance. ADRENAL GLANDS: Unremarkable. KIDNEYS/RETROPERITONEUM: No renal calculi are identified. There is no hydronephrosis. LYMPH NODES: No retroperitoneal lymphadenopathy is identified in the abdomen or pelvis. VASCULATURE: The abdominal aorta is normal in caliber. MESENTERY/PERITONEUM: No free fluid. No masses. There is no free intraperitoneal gas. STOMACH: There is a small hiatal hernia. The patient is status post laparoscopic gastric band procedure. The stomach is collapsed. SMALL BOWEL: The small bowel is normal in caliber. COLON: The colon is unremarkable. APPENDIX: Normal. URINARY BLADDER/PELVIC ORGANS: The urinary bladder is collapsed, limiting evaluation. An IUD is noted in the endometrial cavity of the uterus. The ovaries are normal in size. BONES / SOFT TISSUES: No suspicious bony or soft tissue abnormalities. CT/CT abdomen pelvis wo IV con IMPRESSION: Status post laparoscopic gastric band procedure. Small hiatal hernia. MODIFIED BARIUM SWALLOW ORDERED BY PCP 09/05/2024 FINDINGS: No evidence of laryngeal penetration, glottic or subglottic aspiration. There was mild cricopharyngeal achalasia noted. FLUOROSCOPY TIME: 1 minute 37 seconds Number of Spot Images: N/A DOSE AREA PRODUCT: 1381 uGy-m2 (microgray-meter squared) FL/FL Modified Barium Swallow IMPRESSION: 1. No evidence of laryngeal penetration or glottic or subglottic aspiration. 2. Mild cricopharyngeal achalasia noted. SPEECH THERAPY REPORT Suggested Referrals: The patient might benefit from a referral to: Gastroenterology Indication for Referral: Patient reporting globus sensation, with MBSS showing good oral and pharyngeal clearance, noted mild cricopharyngeal achalasia. Hx diverticulosis & small hiatal hernia. Patient reports having chronic reflux, prescribed omeprazole by Urgent Care. Therapy Recommendations: Diet modification and further speech therapy is not warranted at this time, as swallow is deemed functional in the oral and pharyngeal phases. Patient may benefit from further workup w/ GI (upper GI series/barium swallow) d/t complaints of globus sensation and significant reflux; note hx diverticulosis & hiatal hernia. TODAYS VISIT She is agreeable to the 10 year follow-up. The procedure was well tolerated. The results were explained and the patient is agreeable to the follow-up interval as stated. The bowel pattern has returned to normal. Education was provided to tell any 1st degree relatives about their findings to be sure that they are screened by age 45. Educated that they will be put on a recall list when it is time for their repeat scope but should they move out of state or away from the hospital they will need to remember along with their primary to repeat the procedure in a timely fashion to avoid any adverse complications. She has been sent here for a new problem. She had been having severe GERD and intermittent dysphagia over the past 3 years. Recently, she had a cough and she nearly choked to on the pill. She frequently will have trouble swallowing even water but it feels like it gets hung up mostly just above the midsternal area. This is more of a problem with cold fluids, but can happen with anything. It is certainly also happens with solid foods. She does not suffer from constipation or diarrhea. She is status post cholecystectomy so bile GERD is potential part of differential diagnosis. Also complicating her presentation is the fact that she is status post lap band patient. Her primary care provider ordered a modified barium swallow which showed potential cricopharyngeal achalasia but unfortunately did not look at the lower esophagus to give us an idea of what is going on there. She also had a CAT scan which did show a hiatal hernia but it was very small hiatal hernia so I doubt that this is the major causative factor in her situation There is no known family history of esophageal or stomach cancer. Her mother always had trouble with her stomach. Her thyroid is normal so this does not appear to be part of the problem. Because of the lap band it is possible that she has delayed gastric emptying contributing so I think a gastric emptying study would be prudent and will of course we will also get an endoscopy to see if there is any esophageal scarring that needs to be addressed It is also possible that she is having esophageal spasm related to insufficiently controlled GERD. She does take omeprazole 20 mg once a day and we may need to increase that dose depending on the study findings. We will also do an H pylori test since this can drive severe GERD in his a simple solution to a complex problem at times. We did discuss intermediate measures for controlling GERD. She currently, wisely, is not eating later in the evening because if she does she will wake up choking. I also recommend that they put blocks risers under the head of bed to reduce this risk. I may need to consider a full barium swallow depending on the outcome of some of the other studies. It is entirely possible that she has a sliding hiatal hernia and this explains the exacerbating or remitting nature of the subjective symptoms. She has sleep apnea but no other respiratory or cardiac problems. There are no prior problems with anesthesia or sedation. There are no infectious disease problems. ROV 6 weeks. For now I have done no new interventions as I want to gather some more evidence.. [facility] Medical History (Updated 10/31/24 @ 13:42 by JASSON Brown) Screening for colon cancer Pre-op examination Encounter for routine adult physical exam with abnormal findings PCOS (polycystic ovarian syndrome) Hypercholesteremia Surgical History (Updated 10/31/24 @ 13:10 by JASSON Brown) History of esophagogastroduodenoscopy (EGD) Hx of colonoscopy S/P LASIK surgery of both eyes Hx of section S/P cholecystectomy Hx of laparoscopic gastric banding Hx of tonsillectomy Family History Mother Diabetes Uterine cancer Father Heart attack Social History Are you a primary dog day care attendant to a significant other at home: No Do you presently have visiting nurse or other home services: No Alcohol intake: current Alcohol intake frequency: holidays/special occasions only Alcohol type: beer and hard liquor Patient Tobacco Use Status: Never used Tobacco e-Cigarette/Vaping Use: Never Used service: No Current occupational status: employed Current occupation: teacher, [employer] Cognitive needs: No Hearing needs: No Vision needs: No Review of Systems Const Denies fatigue, Denies fever(s), Denies night sweats, Denies poor appetite and Denies weight loss ENT Reports Normal hearing present, Denies dental pain, Reports dysphagia, Denies hearing loss, Denies mouth pain, Denies odynophagia, Reports post nasal drip, Denies throat swelling, Denies tongue swelling and Reports other (Dentition adequate) Card Reports no additional complaints Resp Reports cough GI Details: Denies abdominal pain, Denies melena, Denies bloating, Denies hematochezia, Denies constipation, Denies GI cramping, Reports dysphagia, Denies excessive flatus, Denies early satiety, Reports heartburn, Denies diarrhea, Denies nausea, Denies odynophagia, Denies vomiting and Denies hematemesis Skin/Breast Denies pruritus, Denies lesions, Denies rash and Denies jaundice Neuro Reports Normal hearing present and Denies Abnormal speech present Endo Denies fatigue Aller/Immun Denies throat swelling and Denies tongue swelling Physical Exam Vital Signs: Last Vital Signs Pulse 88 10/31/24 13:00 BP 106/52 L 10/31/24 13:00 Const General: cooperative, no acute distress, well developed and well groomed Nutritional Appearance: well nourished and obese Orientation/consciousness: oriented to person, oriented to place and oriented to time Limitations: No language barrier HEENT Head: Yes normocephalic and Yes atraumatic Eyes General: appearance normal, both eyes and all related structures Pupils: Equal, round and reactive pupils present Neck Neck: Yes normal visual inspection and Yes no lymphadenopathy Thyroid: Thyroid normal Resp Effort & Inspection: normal respiratory effort and able to speak in complete sentences Auscultation: clear to auscultation bilaterally Cardio Rate: regular rate Rhythm: regular rhythm Heart sounds: Normal, physiologic split S2 sound present Peripheral pulses: radial pulses present and posterior tibial pulses present GI Inspection: No distended, No Abdominal panniculus present and Yes obesity Palpation (GI): Soft to palpation, nontender, no guarding, not rigid, No hepatosplenomegaly present and Hepatosplenomegaly present Percussion: Yes normal to percussion Auscultation: normal bowel sounds Rectal Exam - Female: deferred Skin General skin exam: no rashes or lesions noted, turgor normal, skin not dry, no jaundice, No spider nevi and no striae Rashes: no rashes Nails: normal Neuro General: oriented to person, oriented to place and oriented to time Cranial nerves: Yes Equal, round and reactive pupils present and Yes Normal hearing present Speech: No Abnormal speech present Extrem General: Yes normal to inspection, No clubbing, No cyanosis and No edema Psych Appearance: grossly normal and well kempt Mental Status: mental status grossly normal Speech and movement: Normal speech and movement present Affect: normal affect Attitude: cooperative Thought process: Normal thought process present and not confabulating Thought content: Normal thought content present Insight: Fair insight present (Psych) Judgement: Fair judgement present (Psych) Results Reviewed Results Reviewed: COLONOSCOPY 04/30/24 Findings: Mucosa: Normal to cecum and terminal ileum. Protruding lesions: * Large internal hemorrhoids without stigmata of recent bleeding. Excavated lesions: * Mild diverticulosis of sigmoid colon. Impression: 1. Normal colon and terminal mucosa 2. Diverticulosis 3. External and internal hemorrhoids Recommendations: - repeat colonoscopy for colorectal cancer screening in 10 years * CT ABDOMEN AND PELVIS-ORDERED BY PCP 09/30/2024 FINDINGS: LOWER CHEST: The visualized lung bases are clear. There is no pleural effusion. CARDIOVASCULATURE: The heart is normal in size. There is no pericardial effusion. LIVER: The liver is normal in size and contour. The liver has an unremarkable unenhanced appearance. GALLBLADDER / BILE DUCTS: The gallbladder is surgically absent. There is no intra or extrahepatic biliary ductal dilatation. SPLEEN: The spleen is normal in size and has an unremarkable unenhanced appearance. PANCREAS: The pancreas has an unremarkable unenhanced appearance. ADRENAL GLANDS: Unremarkable. KIDNEYS/RETROPERITONEUM: No renal calculi are identified. There is no hydronephrosis. LYMPH NODES: No retroperitoneal lymphadenopathy is identified in the abdomen or pelvis. VASCULATURE: The abdominal aorta is normal in caliber. MESENTERY/PERITONEUM: No free fluid. No masses. There is no free intraperitoneal gas. STOMACH: There is a small hiatal hernia. The patient is status post laparoscopic gastric band procedure. The stomach is collapsed. SMALL BOWEL: The small bowel is normal in caliber. COLON: The colon is unremarkable. APPENDIX: Normal. URINARY BLADDER/PELVIC ORGANS: The urinary bladder is collapsed, limiting evaluation. An IUD is noted in the endometrial cavity of the uterus. The ovaries are normal in size. BONES / SOFT TISSUES: No suspicious bony or soft tissue abnormalities. CT/CT abdomen pelvis wo IV con IMPRESSION: Status post laparoscopic gastric band procedure. Small hiatal hernia. MODIFIED BARIUM SWALLOW ORDERED BY PCP 09/05/2024 FINDINGS: No evidence of laryngeal penetration, glottic or subglottic aspiration. There was mild cricopharyngeal achalasia noted. FLUOROSCOPY TIME: 1 minute 37 seconds Number of Spot Images: N/A DOSE AREA PRODUCT: 1381 uGy-m2 (microgray-meter squared) FL/FL Modified Barium Swallow IMPRESSION: 1. No evidence of laryngeal penetration or glottic or subglottic aspiration. 2. Mild cricopharyngeal achalasia noted. SPEECH THERAPY REPORT Suggested Referrals: The patient might benefit from a referral to: Gastroenterology Indication for Referral: Patient reporting globus sensation, with MBSS showing good oral and pharyngeal clearance, noted mild cricopharyngeal achalasia. Hx diverticulosis & small hiatal hernia. Patient reports having chronic reflux, prescribed omeprazole by Urgent Care. Therapy Recommendations: Diet modification and further speech therapy is not warranted at this time, as swallow is deemed functional in the oral and pharyngeal phases. Patient may benefit from further workup w/ GI (upper GI series/barium swallow) d/t complaints of globus sensation and significant reflux; note hx diverticulosis & hiatal hernia. Assessment & Plan Assessment & Plan (1) Hx of colonoscopy: Comment: 04/2024 NEG STUDY REPEAT 10 YEARS Code(s): Z98.890 - Other specified postprocedural states Category: Medical (2) GERD (gastroesophageal reflux disease): Code(s): K21.9 - Gastro-esophageal reflux disease without esophagitis Category: Medical (3) Hx of laparoscopic gastric banding: Code(s): Z98.84 - Bariatric surgery status Category: Medical (4) Sleep apnea: Code(s): G47.30 - Sleep apnea, unspecified Category: Medical Plan She is agreeable to the 10 year follow-up. The procedure was well tolerated. The results were explained and the patient is agreeable to the follow-up interval as stated. The bowel pattern has returned to normal. Education was provided to tell any 1st degree relatives about their findings to be sure that they are screened by age 45. Educated that they will be put on a recall list when it is time for their repeat scope but should they move out of state or away from the hospital they will need to remember along with their primary to repeat the procedure in a timely fashion to avoid any adverse complications. She has been sent here for a new problem. She had been having severe GERD and intermittent dysphagia over the past 3 years. Recently, she had a cough and she nearly choked to on the pill. She frequently will have trouble swallowing even water but it feels like it gets hung up mostly just above the midsternal area. This is more of a problem with cold fluids, but can happen with anything. It is certainly also happens with solid foods. She does not suffer from constipation or diarrhea. She is status post cholecystectomy so bile GERD is potential part of differential diagnosis. Also complicating her presentation is the fact that she is status post lap band patient. Her primary care provider ordered a modified barium swallow which showed potential cricopharyngeal achalasia but unfortunately did not look at the lower esophagus to give us an idea of what is going on there. She also had a CAT scan which did show a hiatal hernia but it was very small hiatal hernia so I doubt that this is the major causative factor in her situation There is no known family history of esophageal or stomach cancer. Her mother always had trouble with her stomach. Her thyroid is normal so this does not appear to be part of the problem. Because of the lap band it is possible that she has delayed gastric emptying contributing so I think a gastric emptying study would be prudent and will of course we will also get an endoscopy to see if there is any esophageal scarring that needs to be addressed It is also possible that she is having esophageal spasm related to insufficiently controlled GERD. She does take omeprazole 20 mg once a day and we may need to increase that dose depending on the study findings. We will also do an H pylori test since this can drive severe GERD in his a simple solution to a complex problem at times. We did discuss intermediate measures for controlling GERD. She currently, wisely, is not eating later in the evening because if she does she will wake up choking. I also recommend that they put blocks risers under the head of bed to reduce this risk. I may need to consider a full barium swallow depending on the outcome of some of the other studies. It is entirely possible that she has a sliding hiatal hernia and this explains the exacerbating or remitting nature of the subjective symptoms. She has sleep apnea but no other respiratory or cardiac problems. There are no prior problems with anesthesia or sedation. There are no infectious disease problems. ROV 6 weeks. For now I have done no new interventions as I want to gather some more evidence.. Orders: Orders H pylori Ag Stool Today K21.9 - Gastro-esophageal reflux disease without esophagitis EGD - GI Use Only Today K21.9 - Gastro-esophageal reflux disease without esophagitis NM gastric emptying study Today K21.9 - Gastro-esophageal reflux disease without esophagitis Coding Level of Care Code Est Pt Level 4 (33962) Diagnoses Hx of colonoscopy Z98.890 GERD (gastroesophageal reflux disease) K21.9 Hx of laparoscopic gastric banding Z98.84 Sleep apnea G47.30 Time Spent (min) 38
[2024-10-31 13:00] VITALS: BP 106/52; PULSE 88
--- OUTSIDE RECORDS SUMMARY | 2024-10-31 13:16 | XMS_ITS | Clinical Summary ---
Author Organization [address] Address [address] [place] [address] Phone Care Team Providers Care Medical Underwriter Name Role Phone Jack Almendarez DO Primary Care Provider [phone] Surgical History Surgery Date Site/Laterality Comments GASTRIC BYPASS 01/18/05 PROCEDURE: [place] GASTRIC RSTCV W/BYP W/SM INT RCNSTJ LIMIT ABSRPJ; COMMENT: weighed 228 pounds at the highest TONSILLECTOMY PROCEDURE: HISTORICAL TONSILLECTOMY CHOLECYSTECTOMY 09/2005 PROCEDURE: [place] CHOLECYSTECTOMY SECTION 12/20/07 PROCEDURE: HISTORICAL DELIVERY Medical [...] = 0.6 oz pur e alcohol) Comments No Sex and Gender Information Value Date Recorded Sex Assigned at Not on file Legal Sex Female 5:20 PM EST Gender Identity Not on file Sexual Orientation Not on file Obstetrics History Para Term AB IAB SAB Ectopic Multiple Livin g Live Births 1 1 1 1 Date Outcome GA Total Labor Labor/2nd/3rd Weight Sex Type Anes PTL Liana A1 A5 Name Clin Term Plan of Treatment Upcoming Encounters Date Type Department Care Team (Late st Contact Info) Description 07/17/2025 3:20 PM EDT Appointment Radiology Department [address] [address] Health Maintenance Due Date Last Done Comments Hepatitis B Vaccines (1 of 3 - 19+ 3-dose series) 1992 Cervical Cancer Screening: HPV 1994 Cholesterol Screening (Lipid Panel) 03/26/2022 Colorectal Cancer Screening: Colonoscopy 03/26/2022 Depression Screening 03/26/2022 HIV Screening 03/26/2022 Hepatitis C Screening 03/26/2022 Social Influencers of Health Screening 03/26/2022 DTaP,Tdap,and Td Vaccines (3 - Td or Tdap) 11/27/2022 11/27/2012, 01/06/2010 Pneumococcal Vaccine: 50+ Years (1 of 1 - PCV) 2023 Zoster Vaccines (1 of 2) 2023 COVID-19 Vaccine ( - season) 2023 08/12/2020, 07/20/2020, 06/29/2020 Influenza Vaccine (#1) 2024 , 01/01/2019, 12/18/2018, Additional history exists Breast Cancer Screening 07/16/2026 07/17/19, 07/11/2023, 07/11/2023, Additional history exists HIB Vaccines Aged Out [...] age to complete this topic Meningococcal B Vaccine Aged Out No l onger eligible based on patient's age to complete this topic RSV Immunization Patients Under 20 months Aged Out No longer eligible based on patient's age to complete this topic Varicella Vaccines Aged Out No longer eligible based on patient's age to complete this topic Procedures Procedure Name Priority Date/Time Associated Diagnosis Comments MG MAMMO DIGITAL SCREENING W JOSELUIS BILAT Routine 07/16/2024 3:11 PM EDT Encounter for screening mammogram for breast cancer from Last 3 Months or Most Recently Relevant to Health Maintenance Results * MG Mammo Digital Screening w Joseluis bilat (07/16/2024 3:11 PM EDT) Anatomical Region Laterality Modality Breast Bilateral Mammography 07/17/2024 9:09 AM EDT Impressions 07/17/2024 9:10 AM EDT No mammographic evidence of malignancy. BREAST DENSITY: B - There are scattered areas of fibroglandular density. BI-RADS CATEGORY: 1 - NEGATIVE RECOMMENDATION: Screening bilateral mammogram is recommended in 1 year. MAMMO LOCATION: [facility], [address] [place] [address], [id number], . -------- FINAL REPORT -------- Dictated By: Elizabeth Kim Dictated Date: 07/17/2024 09:09 ET Assigned Physician: Elizabeth Kim Reviewed and Electronically Signed By: Elizabeth Kim Signed Date: 07/17/2024 09:10 ET Workstation ID: [id number] Transcribed By: Self Edit Transcribed Date: 07/17/2024 09:09 ET Narrative 07/17/2024 9:10 AM EDT EXAM: Screening Mammogram CLINICAL: 49 years old, Female, routine annual exam. COMPARISON: 07/11/2023 and as far back as 06/25/2020 TECHNIQUE: Bilateral MLO and CC views were obtained digitally with 3-D mammogram (digital breast tomosynthesis). Computer-aided detection was utilized in evaluation of this exam (CAD). FINDINGS: No new suspicious mass, architectural distortion, or suspicious calcifications. Procedure Note Elizabeth Kim MD - 07/17/2024 EXAM: Screening Mammogram CLINICAL: 49 years old, Female, routine annual exam. COMPARISON: 07/11/2023 and as far back as 06/25/2020 TECHNIQUE: Bilateral MLO and CC views were obtained digitally with 3-Dmammogram (digital breast tomosynthesis). Computer-aided detection wasutilized in evaluation of this exam (CAD). FINDINGS: No new suspicious mass, architectural distortion, or suspiciouscalcifications. IMPRESSION: No mammographic evidence of malignancy. BREAST DENSITY: B - There are scattered areas of fibroglandular density. BI-RADS CATEGORY: 1 - NEGATIVE RECOMMENDATION: Screening bilateral mammogram is recommended in 1 year. MAMMO LOCATION: [facility], [address] [place] [address], [id number], . -------- FINAL REPORT -------- Dictated By: Elizabeth Kim Dictated Date: 07/17/2024 09:09 ET Assigned Physician: Elizabeth Kim Reviewed and Electronically Signed By: Elizabeth Kim Signed Date: 07/17/2024 09:10 ET Workstation ID: [id number] Transcribed By: Self Edit Transcribed Date: 07/17/2024 09:09 ET Jack Almendarez DO IMG BI PROCEDURES Final Result from Last 3 Months or Most Recently Relevant to Health Maintenance Insurance [facility] [address] [place] [address] Care Teams Medical Underwriter Relationship Specialty Start Date End Date Jack Almendarez DO PCP - General Internal Medicine 09/16/21
--- OUTSIDE RECORDS SUMMARY | 2024-10-31 13:16 | XMS_ITS | Encounter Summary ---
Author Organization [facility] Address [address] [place] [address] Care Team Providers Care Engineering Professor Name Role Phone Yelena Gardner MD Primary Care Provider Unavaila ble Jack Almendarez DO Primary Care Provider Unavaila dale Encounter Details Date Type Department Care Team Description 01/05/2011 Gas And Oil Checker Report Medical Records [address] [place] [address] Social History Tobacco Use Types Packs/Day Years Used Date Smoking Tobacco: Never Smokeless Tobacco: Never Alcohol Use Standard Drinks/Week Comments No 0 (1 standard drink = 0.6 oz pur e alcohol) Sex Assigned at Date Recorded Not on file Job Start Date Occupation Industry Not on file Not on file Not on file documented as of this encounter Plan of Treatment Not on file documented as of this encounter Visit Diagnoses Not on filedocumented in this encounter Care Teams Engineering Professor Relationship Specialty Start Date End Date Yelena Gardner MD PCP - General 12/08/05 09/15/21 Jack Almendarez DO PCP - General Internal Medicine 09/16/21 documented as of this encounter
== END 2024-10-31 13:34 | disposition home or self-care (01) ==
LOC: HO.HGI 12:51
PROVIDERS: PCP Nurse Practitioner Family; Visit Provider Nurse Practitioner
DX: Z98.890 Other specified postprocedural states (principal); K21.9 Gastro-esophageal reflux disease without esophagitis; Z98.84 Bariatric surgery status; G47.30 Sleep apnea, unspecified
CPT/HCPCS: 99214

== ENCOUNTER 2024-12-23 09:03 | Outpatient (AMB) | payer OTHER, SELFPAY ==
[2024-12-23 09:26] VITALS: BP 112/70; PULSE 85; RESP 16; O2SAT 97; BMI 37.8
--- NOTE | 2024-12-23 09:26 | A.OFFPC_ITS ---
Vital Signs 12/23/24 09:26 Height 5 ft 4 in Weight 220 lb BMI 37.8 BP 112/70 Blood Pressure Location Lt brachial Position Sitting Respiration 16 Pulse 85 Pulse Source Pulse Oximeter Pulse Oximetry (%) 97 Oxygen Delivery Method Room Air Intake Visit Reasons: PE Insulation Worker Interior Surface Required: No Accompanied by: Self / Same As Patient Allergies azithromycin Allergy (Severe, Verified 12/23/24 10:28) Unknown cat dander Allergy (Severe, Verified 12/23/24 10:28) Itching dog dander Allergy (Severe, Verified 12/23/24 10:28) Rash latex Allergy (Severe, Verified 12/23/24 10:28) rash Seasonal Allergies Allergy (Severe, Verified 12/23/24 10:28) Rash atorvastatin Adverse Reaction (Mild, Verified 12/23/24 10:28) Weakness Medication List - Last Reconciled 12/23/24 by NOHEMI Antoine- aspirin 81 mg PO DAILY cetirizine (Allergy Relief (cetirizine)) 10 mg PO DAILY PRN d-mannose 1,000 mg PO DAILY estradiol 1 mg PO DAILY estradiol 0.5 mg PO DAILY fluticasone propionate 50 mcg/actuation 1 spray intranasal DAILY L. reuteri-L. rhamnosus 5 billion cell (RepHresh Pro-B) caps PO omeprazole 20 mg PO DAILY Tobacco use date assessed: 12/23/24 Dental Screening Dental Screen Date: 12/23/24 Did you have a dental visit in the last 12 months?: Yes Did you have a dental problem in the last 6 months where you did not have access to dental care?: No HPI PE HPI Details History of Present Illness The patient is a 49-year-old female presenting with a physical examination. She has a history of obesity and underwent a gastric sleeve procedure many years ago. Currently, she is experiencing significant gastroesophageal reflux disease, characterized by acid reflux and choking sensations. She is under the care of a field cane scaler helper and is scheduled for a gastrocapine study soon. Ompeprazole does help with GERD The patient denies experiencing chest pain, dyspnea, abdominal pain, hematochezia, constipation, diarrhea, suicidal ideation, or homicidal ideation. She reports overall well-being aside from the aforementioned issues. Her gynecological health is maintained with an up-to-date mammogram, and her colon cancer screening is current. Health Maintenance - Mammogram up to date - Colon cancer screening up to date Social History Review of Systems - Cardiovascular: Denies chest pain - Respiratory: Denies dyspnea - Gastrointestinal: Denies abdominal hortensia n, hematochezia, constipation, diarrhea - Psychiatric: Denies suicidal ideation, homicidal ideation -denies any fevers, chills Physical Exam General: Cooperative, obese, comfortable, no acute distress and well developed Orientation: Patient oriented x3 Limitations: No limitations Head: Normal to inspection Ears: Hearing grossly normal bilaterally Nose: Normal external nose present Face and sinus: Normal facial exam Eyes: Appearance normal, both eyes and all related structures Neck: Normal visual inspection and Yes full ROM Respiratory: Normal respiratory effort and able to speak in complete sentences. Clear to auscultation bilaterally Cardiovascular: Regular rate and rhythm. Normal S1 and S2 GI: Normal to inspection. Soft to palpation and nontender. Skin: No rashes or lesions noted Neuro: Patient oriented x3 Extremities: Normal to inspection Results Plan 1. Obesity The patient has a history of obesity and previously underwent a gastric sleeve procedure. 2. Gastroesophageal Reflux Disease The patient is experiencing significant gastroesophageal reflux disease, characterized by acid reflux and choking sensations. She is under the care of a field cane scaler helper and is scheduled for a gastrocapine study soon. Discussion Notes Patient Instructions [facility] Medical History Encounter for routine adult physical exam with abnormal findings Screening for colon cancer Pre-op examination PCOS (polycystic ovarian syndrome) Hypercholesteremia Surgical History History of esophagogastroduodenoscopy (EGD) Hx of colonoscopy S/P LASIK surgery of both eyes Hx of section S/P cholecystectomy Hx of laparoscopic gastric banding Hx of tonsillectomy Family History Mother Diabetes Uterine cancer Father Heart attack Social History Are you a primary coronary care unit nurse to a significant other at home: No Do you presently have visiting nurse or other home services: No Alcohol intake: current Alcohol intake frequency: holidays/special occasions only Alcohol type: beer and hard liquor Patient Tobacco Use Status: Never used Tobacco e-Cigarette/Vaping Use: Never Used service: No Current occupational status: employed Current occupation: teacher, [employer] Cognitive needs: No Hearing needs: No Vision needs: No Questionnaire PHQ-9 Over the last 2 weeks, how often have you been bothered by any of the following problems? 1. Little interest or pleasure in doing things: not at all 2. Feeling down, depressed, or hopeless: not at all 3. Trouble falling or staying asleep, or sleeping too much: not at all 4. Feeling tired or having little energy: not at all 5. Poor appetite or overeating: not at all 6. Feeling bad about yourself - or that you are a failure or have let yourself or your family down: not at all 7. Trouble concentrating on things, such as reading the newspaper or watching television: not at all 8. Moving or speaking so slowly that other people could have noticed. Or the opposite - being so fidgety or restless that you have been moving around a lot more than usual: not at all 9. Thoughts that you would be better off or of hurting yourself in some way: not at all Total score: 0 Depression Screening Interpretation: Negative Depression Screening Done: Yes Source: Developed by Drs. Leroy Becerril, Vanessa Brooks, Narendra Proctor and colleagues, with an educational tessy from [employer]. Thrive Questionnaire Date Thrive assessed: 06/20/24 I am a: Patient What is your living situation today?: I have a steady place to live Within the past 12 months, did the food you bought not last and you didn't have the money to get more?: Never true Within the past 12 months, did you worry whether your food would run out before you got money to buy more?: Never true Do you have trouble paying for medicines?: No Do you have trouble getting transportation to medical appointments?: No Do you have trouble paying your heating and electricity bill?: No Do you have trouble taking care of your child, family member or friend?: No Do you have trouble with day-to-day activities such as bathing, preparing meals, shopping, managing finances, etc.?: No Are you currently unemployed and looking for a job?: No Are you interested in more education?: No Please select the resources that you would like help with: None Currently or been in a relationship where the following occur: No concerns reported THRIVE Score: 0 YOVANI-7 AMB Questionnaire YOVANI-7 Date YOVANI - 7 assessed: 12/23/24 Feeling nervous, anxious, or on edge: 0 = Not at all Not being able to stop or control worryin = Not at all Worrying too much about different things: 0 = Not at all Trouble relaxin = Not at all Being so restless that it is hard to sit still: 0 = Not at all Becoming easily annoyed or irritable: 1 = Several days Feeling afraid as if something awful might happen: 0 = Not at all Total YOVANI-7 score (0-4 normal; 5-9 mild; 10-14 moderate; 15-21 severe): 1 Source: Developed by Drs. Leroy Becerril, Vanessa Brooks, Narendra Proctor and colleagues, with an educational tessy from [employer]. YOVANI-7 Assessment Billing YOVANI-7 Assessment Tool: YOVANI-7 Assessment 21650 Physical exam (Primary Care) Vital Signs: Last Vital Signs Pulse 85 12/23/24 09:26 Resp 16 12/23/24 09:26 BP 112/70 12/23/24 09:26 Pulse Ox 97 12/23/24 09:26 Oxygen Delivery Method Room Air 12/23/24 09:26 BMI result Body Mass Index 37.8 Tobacco/Smoking Status: Tobacco use Status Tobacco use date assessed 12/23/24 12/23/24 09:31 Patient Tobacco Use Status Never used Tobacco 12/23/24 09:31 e-Cigarette/Vaping Use Never Used 12/23/24 09:31 PHQ-9: PHQ-9 Score PHQ-9: Total score 0 12/23/24 09:31 Depression Screening Interpretation: Negative Thrive Assessment: Date of Thrive Assessment Date Thrive assessed 06/20/24 12/23/24 09:31 Currently or been in a relationship where the following occur: No concerns reported Coding Level of Care Code Est Pt Prev Care 40-64y(84607) Diagnoses Encounter for routine adult physical exam with abnormal findings Z00.01 Vitamin D deficiency E55.9 Additional Codes YOVANI-7 Assessment Billing - YOVANI-7 Assessment Tool: YOVANI-7 Assessment 71784 ([id number]) Assessment & Plan Assessment & Plan (1) Encounter for routine adult physical exam with abnormal findings: Code(s): Z00.01 - Encounter for general adult medical examination with abnormal findings Category: Medical (2) Vitamin D deficiency: Code(s): E55.9 - Vitamin D deficiency, unspecified Category: Medical Plan . Orders: Orders TSH reflex Free T4 Today Z00.01 - Encounter for general adult medical examination with abnormal findings Lipid Panel Today Z00.01 - Encounter for general adult medical examination with abnormal findings AMB Hemoglobin A1c Today Z13.9 - Encounter for screening, unspecified Complete Blood Count Auto Diff Today Z00.01 - Encounter for general adult medical examination with abnormal findings Comprehensive [place]. Panel Fast Today Z00.01 - Encounter for general adult m edical examination with abnormal findings UA CC w/rflx Micro + Cult Today Z00.01 - Encounter for general adult medical examination with abnormal findings Vitamin D 25-OH Total Today E55.9 - Vitamin D deficiency, unspecified Medications: Refilled omeprazole 20 mg PO DAILY 90 caps 0RF
--- OUTSIDE RECORDS SUMMARY | 2024-12-23 10:13 | XMS_ITS | Clinical Summary ---
Author Organization [address] Address [address] [place] [address] Phone Care Team Providers Care Solar Designer/Installer Name Role Phone Jack Almendarez DO Primary Care Provider [phone] Surgical History Surgery Date Site/Laterality Comments GASTRIC [...] 07/17/2025 3:20 PM EDT Appointment Radiology Department [address] [phone] Health Maintenance Due Date Last Done Comments Hepatitis B Vaccines (1 of 3 - 19+ 3-dose series) 1992 Cervical Cancer Screening: HPV 1994 Cholesterol Screening (Lipid Panel) 03/26/2022 Colorectal Cancer Screening: Colonoscopy 03/26/2022 HIV Screening 03/26/2022 Hepatitis C Screening 03/26/2022 Social Influencers of Health Screening 03/26/2022 DTaP,Tdap,and Td Vaccines (3 - Td or Tdap) 11/27/2022 11/27/2012, 01/06/2010 Pneumococcal Vaccine: 50+ Years (1 of 1 - PCV) 2023 Zoster Vaccines (1 of 2) 2023 Depression Screening 04/17/2024 COVID-19 Vaccine ( - 2024- season) 2024 08/12/2020, 07/20/2020, 06/29/2020 Influenza Vaccine (#1) 2024 [...] is recommended in 1 year. MAMMO LOCATION: [facility], [address] [place] [address], [address], . -------- FINAL REPORT -------- Dictated By: Elizabeth Kim Dictated Date: 07/17/2024 09:09 ET Assigned Physician: Elizabeth Kim Reviewed and Electronically Signed By: Elizabeth Kim Signed Date: 07/17/2024 09:10 ET Workstation ID: [id number] Transcribed By: Self Edit Transcribed Date: 07/17/2024 [...] is recommended in 1 year. MAMMO LOCATION: [facility], [address] [place] [address], [id number], . -------- FINAL REPORT -------- Dictated By: Elizabeth Kim Dictated Date: 07/17/2024 09:09 ET Assigned Physician: Elizabeth Kim Reviewed and Electronically Signed By: Elizabeth Kim Signed Date: 07/17/2024 09:10 ET Workstation ID: [id number] Transcribed By: Self Edit Transcribed Date: 07/17/2024 09:09 ET Jack Almendarez DO IMG BI PROCEDURES Final Result from Last 3 Months or Most Recently Relevant to Health Maintenance Insurance [facility] [address] [place] [address] Care Teams Solar Designer/Installer Relationship Specialty Start Date End Date Jack Almendarez DO PCP - General Internal Medicine 09/16/21
--- OUTSIDE RECORDS SUMMARY | 2024-12-23 10:13 | XMS_ITS ---
Author Name [facility] Organization Unknown Care Team Organization Name Specialty Phone Email Start Date End Da te [facility] DO Primary Care 10/20/202211/15 [facility] DO Primary Care 02/22/202211/15
== END 2024-12-23 10:30 | disposition home or self-care (01) ==
LOC: HO.HMCC 09:04
PROVIDERS: PCP Nurse Practitioner Family; Visit Provider Nurse Practitioner Family
DX: Z00.01 Encounter for general adult medical examination with abnormal findings (principal); E55.9 Vitamin D deficiency, unspecified

== ENCOUNTER → 2024-12-23 09:03 | Outpatient (BNVA) | payer OTHER, SELFPAY | PROVIDERS: PCP Nurse Practitioner Family; Visit Provider Nurse Practitioner Family | DX: Z00.01 Encounter for general adult medical examination with abnormal findings (principal); K21.9 Gastro-esophageal reflux disease without esophagitis; E55.9 Vitamin D deficiency, unspecified; Z98.84 Bariatric surgery status | CPT/HCPCS: 96127 ==

== ENCOUNTER → 2025-01-01 07:55 | Outpatient (REF) | payer OTHER, SELFPAY ==
--- NOTE | ~2025-01-01 | NM_ITS ---
EXAMINATION: NC RADIONUCLIDE SOLID FOOD GASTRIC EMPTYING 4-HOUR STUDY CLINICAL INFORMATION: K21.9 - Gastro-esophageal reflux disease without esophagitis COMPARISON: There are no prior studies available for comparison. TECHNIQUE: A standard meal consisting of 8 oz of Ensure brand tagged with 1.0 mCi Tc-99m Sulfur Colloid was administered orally to the patient. Images were obtained using a dual head gamma camera in the anterior and posterior projections over of the stomach immediately post ingestion and at hourly intervals up to 4 hours post ingestion. The anterior and posterior counts at each time interval were averaged using the geometric mean and expressed as percentage of the immediate post ingestion counts. FINDINGS: There is visualization of activity in the stomach immediately post ingestion. As the study progresses, there is clearance of activity from the stomach and visualization of progressively increasing small bowel activity. By the end of the study, there is almost no retention noted in the stomach. Retention in the stomach at each time interval was: 1 hour 87% (normal 37%-90%) 2 hours 53% (normal 30%-60%) 3 hours 41% 4 hours 13% (normal 0%-10%) NC/NC gastric emptying study IMPRESSION: Normal 4-hour solid food gastric emptying study. For solid meal, rapid gastric emptying is less than 30% at 60 minutes. Delayed gastric emptying criteria is more than 60% remaining at 120 minutes or more than 10% at 240 minutes. The 4-hour value is the best discriminator of a normal or abnormal result). Gastric emptying study grading per JNMT Consensus Recommendations in 2008 (https://tech.snmjournals.org/content/36/1/44) Grade 1 (mild retention): 11-20% at 4h Grade 2 (moderate retention): 21-35% at 4h Grade 3 (severe retention): 36-50% at 4h Grade 4 (very severe retention): >50% retention at 4h Electronically signed by: Leroy Sher MD 01/01/2025 12:36 PM EDT
--- OUTSIDE RECORDS SUMMARY | 2025-01-01 07:57 | XMS_ITS | Clinical Summary ---
Author Organization [address] Address [address] [place] [address] Phone Care Team Providers Care Tripoler Name Role Phone Jack Almendarez DO Primary Care Provider [phone] Surgical History Surgery Date Site/Laterality Comments GASTRIC BYPASS 01/18/05 PROCEDURE: [place] GASTRIC RSTCV W/BYP W/SM INT RCNSTJ LIMIT ABSRPJ; COMMENT: weighed 228 pounds at the highest TONSILLECTOMY PROCEDURE: HISTORICAL TONSILLECTOMY CHOLECYSTECTOMY 09/2005 PROCEDURE: [place] CHOLECYSTECTOMY SECTION 12/20/07 PROCEDURE: HISTORICAL DELIVERY Medical [...] 07/17/2025 3:20 PM EDT Appointment Radiology Department [address] [phone] Health Maintenance Due Date Last Done Comments [...] is recommended in 1 year. MAMMO LOCATION: [facility], [address] [place] [address], [address], . -------- FINAL REPORT -------- Dictated By: Elizabeth Kim Dictated Date: 07/17/2024 09:09 ET Assigned Physician: Elizabeth Kim Reviewed and Electronically Signed By: Elizabeth Kim Signed Date: 07/17/2024 09:10 ET Workstation ID: [id number] Transcribed By: Self Edit Transcribed Date: 07/17/2024 [...] is recommended in 1 year. MAMMO LOCATION: [facility], [address] [place] [address], [address], . -------- FINAL REPORT -------- Dictated By: Elizabeth Kim Dictated Date: 07/17/2024 09:09 ET Assigned Physician: Elizabeth Kim Reviewed and Electronically Signed By: Elizabeth Kim Signed Date: 07/17/2024 09:10 ET Workstation ID: [id number] Transcribed By: Self Edit Transcribed Date: 07/17/2024 09:09 ET Jack Almendarez DO IMG BI PROCEDURES Final Result from Last 3 Months or Most Recently Relevant to Health Maintenance Insurance [facility] [address] [place] [address] Care Teams Tripoler Relationship Specialty Start Date End Date Jack Almendarez DO PCP - General Internal Medicine 09/16/21
== END ==
LOC: HO.NUCMED 07:55
PROVIDERS: PCP Nurse Practitioner Family; Visit Provider Nurse Practitioner
DX: K21.9 Gastro-esophageal reflux disease without esophagitis (principal)
CPT/HCPCS: 78264; A9541

== ENCOUNTER → 2025-01-01 07:57 | Outpatient (BNV) | payer OTHER, SELFPAY | PROVIDERS: PCP Nurse Practitioner Family; Visit Provider Radiology Diagnostic Radiology | DX: K21.9 Gastro-esophageal reflux disease without esophagitis (principal) | CPT/HCPCS: 78264 ==

== ENCOUNTER 2025-02-28 15:35 | Outpatient (AMB) | payer OTHER, SELFPAY ==
--- NOTE | 2025-02-28 15:43 | A.OFFVIS_ITS ---
Vital Signs 02/28/25 15:50 Height 5 ft 4 in BP 103/57 L Blood Pressure Location Lt brachial Position Sitting Pulse 75 Intake Visit Reasons: gerd Intake Note: Lona returns to in office follow up of GERD. CC: Patient states that she wakes up choking on acid reflux and her has to help her by hitting her on the her back. She states that she can feel when her acid reflux is starting and is always on her Rt lower quadrant and moves all the way up until it comes up .She also reports that she sometimes drinks water and half an hour later the water comes back up. She states that she is already sleeping on her bed elevated but still waking up chocking with reflux. 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 Accompanied by: Self / Same As Patient Allergies azithromycin Allergy (Severe, Verified 02/28/25 15:54) Unknown cat dander Allergy (Severe, Verified 02/28/25 15:54) Itching dog dander Allergy (Severe, Verified 02/28/25 15:54) Rash latex Allergy (Severe, Verified 02/28/25 15:54) rash Seasonal Allergies Allergy (Severe, Verified 02/28/25 15:54) Rash atorvastatin Adverse Reaction (Mild, Verified 02/28/25 15:54) Weakness HPI HPI gerd: Details: Assessment & Plan (1) Hx of colonoscopy: Comment: 04/2024 NEG STUDY REPEAT 10 YEARS Code(s): Z98.890 - Other specified postprocedural states Category: Medical (2) GERD (gastroesophageal reflux disease): Code(s): K21.9 - Gastro-esophageal reflux disease without esophagitis Category: Medical (3) Hx of laparoscopic gastric banding: Code(s): Z98.84 - Bariatric surgery status Category: Medical (4) Sleep apnea: Code(s): G47.30 - Sleep apnea, unspecified Category: Medical Plan She is agreeable to the 10 year follow-up. The procedure was well tolerated. The results were explained and the patient is agreeable to the follow-up interval as stated. The bowel pattern has returned to normal. Education was provided to tell any 1st degree relatives about their findings to be sure that they are screened by age 45. Educated that they will be put on a recall list when it is time for their repeat scope but should they move out of state or away from the hospital they will need to remember along with their primary to repeat the procedure in a timely fashion to avoid any adverse complications. She has been sent here for a new problem. She had been having severe GERD and intermittent dysphagia over the past 3 years. Recently, she had a cough and she nearly choked to on the pill. She frequently will have trouble swallowing even water but it feels like it gets hung up mostly just above the midsternal area. This is more of a problem with cold fluids, but can happen with anything. It is certainly also happens with solid foods. She does not suffer from constipation or diarrhea. She is status post cholecystectomy so bile GERD is potential part of differential diagnosis. Also complicating her presentation is the fact that she is status post lap band patient. Her primary care provider ordered a modified barium swallow which showed potential cricopharyngeal achalasia but unfortunately did not look at the lower esophagus to give us an idea of what is going on there. She also had a CAT scan which did show a hiatal hernia but it was very small hiatal hernia so I doubt that this is the major causative factor in her situation There is no known family history of esophageal or stomach cancer. Her mother always had trouble with her stomach. Her thyroid is normal so this does not appear to be part of the problem. Because of the lap band it is possible that she has delayed gastric emptying contributing so I think a gastric emptying study would be prudent and will of course we will also get an endoscopy to see if there is any esophageal scarring that needs to be addressed It is also possible that she is having esophageal spasm related to ins ufficiently controlled GERD. She does take omeprazole 20 mg once a day and we may need to increase that dose depending on the study findings. We will also do an H pylori test since this can drive severe GERD in his a simple solution to a complex problem at times. We did discuss intermediate measures for controlling GERD. She currently, wisely, is not eating later in the evening because if she does she will wake up choking. I also recommend that they put blocks risers under the head of bed to reduce this risk. I may need to consider a full barium swallow depending on the outcome of some of the other studies. It is entirely possible that she has a sliding hiatal hernia and this explains the exacerbating or remitting nature of the subjective symptoms. She has sleep apnea but no other respiratory or cardiac problems. There are no prior problems with anesthesia or sedation. There are no infectious disease problems. ROV 6 weeks. For now I have done no new interventions as I want to gather some more evidence.. Orders: Orders H pylori Ag Stool Today K21.9 - Gastro-esophageal reflux disease without esophagitis EGD - GI Use Only Today K21.9 - Gastro-esophageal reflux disease without esophagitis NM gastric emptying study Today K21.9 - Gastro-esophageal reflux disease without esophagitis Labs: H PYLORI stool not obtained GASTRIC EMPTYING STUDY 01/01/2025 ADDENDUM #1 As the patient was given Ensure and not a solid meal, the impression should read as follows: IMPRESSION: Normal 4 hour liquid gastric emptying study. EGD BIOPSY TODAY'S VISIT [facility] Medical History Encounter for routine adult physical exam with abnormal findings Screening for colon cancer Pre-op examination PCOS (polycystic ovarian syndrome) Hypercholesteremia Surgical History History of esophagogastroduodenoscopy (EGD) Hx of colonoscopy S/P LASIK surgery of both eyes Hx of section S/P cholecystectomy Hx of laparoscopic gastric banding Hx of tonsillectomy Family History Mother Diabetes Uterine cancer Father Heart attack Social History Are you a primary school child care attendant to a significant other at home: No Do you presently have visiting nurse or other home services: No Alcohol intake: current Alcohol intake frequency: holidays/special occasions only Alcohol type: beer and hard liquor Patient Tobacco Use Status: Never used Tobacco e-Cigarette/Vaping Use: Never Used service: No Current occupational status: employed Current occupation: teacher, [employer] Cognitive needs: No Hearing needs: No Vision needs: No Review of Systems Const Denies fatigue, Denies fever(s), Denies night sweats, Denies poor appetite and Reports weight loss ENT Reports Normal hearing present, Denies dental pain, Reports dysphagia, Denies hearing loss, Denies mouth pain, Denies odynophagia, Denies throat swelling, Denies tongue swelling and Reports other (Dentition adequate) Card Reports no additional complaints Resp Reports no additional complaints GI Details: Denies abdominal pain, Denies melena, Denies bloating, Denies hematochezia, Denies constipation, Denies GI cramping, Reports dysphagia, Denies excessive f latus, Denies early satiety, Reports heartburn, Denies diarrhea, Denies nausea, Denies odynophagia, Reports vomiting and Denies hematemesis Skin/Breast Denies pruritus, Denies lesions, Denies rash and Denies jaundice Neuro Reports Normal hearing present and Denies Abnormal speech present Endo Denies fatigue Aller/Immun Denies throat swelling and Denies tongue swelling Physical Exam Vital Signs: Last Vital Signs Pulse 75 02/28/25 15:50 BP 103/57 L 02/28/25 15:50 Const General: cooperative, no acute distress, well developed and well groomed Nutritional Appearance: well nourished and obese Orientation/consciousness: oriented to person, oriented to place and oriented to time Limitations: No language barrier HEENT Head: Yes normocephalic and Yes atraumatic Eyes General: appearance normal, both eyes and all related structures Pupils: Equal, round and reactive pupils present Neck Neck: Yes normal visual inspection and Yes no lymphadenopathy Thyroid: Thyroid normal Resp Effort & Inspection: normal respiratory effort and able to speak in complete sentences Auscultation: clear to auscultation bilaterally Cardio Rate: regular rate Rhythm: regular rhythm Heart sounds: Normal, physiologic split S2 sound present Peripheral pulses: radial pulses present and posterior tibial pulses present GI Inspection: No distended, Yes Abdominal panniculus present and Yes obesity Palpation (GI): Soft to palpation, nontender, no guarding, not rigid and Hepatosplenomegaly present Percussion: Yes normal to percussion Auscultation: normal bowel sounds Rectal Exam - Female: deferred Skin General skin exam: no rashes or lesions noted, turgor normal, skin not dry, no jaundice, No spider nevi and no striae Rashes: no rashes Nails: normal Neuro General: oriented to person, oriented to place and oriented to time Cranial nerves: Yes Equal, round and reactive pupils present and Yes Normal hearing present Speech: No Abnormal speech present Extrem General: Yes normal to inspection, No clubbing, No cyanosis and No edema Psych Appearance: grossly normal and well kempt Mental Status: mental status grossly normal Speech and movement: Normal speech and movement present Affect: normal affect Attitude: cooperative Thought process: Normal thought process present and not confabulating Thought content: Normal thought content present Insight: Good insight present (Psych) Judgement: Good judgement present (Psych) Assessment & Plan Assessment & Plan (1) GERD (gastroesophageal reflux disease): Code(s): K21.9 - Gastro-esophageal reflux disease without esophagitis Category: Medical (2) Dysphagia: Comment: Mixed between oropharyngeal and midsternal with solids and liquids Code(s): R13.10 - Dysphagia, unspecified Category: Medical Plan Subjective Patient presents for ongoing trouble swallowing and severe heartburn with nocturnal regurgitation. Symptoms have generally improved but over the past two weeks she had episodes, including awakening from sleep with choking, gagging, and coughing; episodes often feel localized to the right side of the chest and can reach into the nose. Fluids are a frequent trigger; patient reports water regurgitating about 30 minutes after morning pills, and several recent episodes of nausea followed by emesis after drinking liquids. Stress exacerbates episodes, and one night involved five start-stop nocturnal events. Hot coffee triggers symptoms; iced coffee is tolerated. Bed head elevation with blocks has reduced severe events; patient avoids late meals. Pills that are larger (e.g., progesterone capsule, D-mannose) have been difficult to swallow, though smaller tablets (e.g., estradiol) are tolerated. Previously used simethicone as needed for gas; has Phazyme (higher-strength simethicone) available. Reports un intentional weight loss since starting fluoxetine, which has otherwise improved mood. Relevant Past Medical, Social, and Family History - Prior laparoscopic gastric banding (no recent fills; original surgeon now at [facility]). Cholecystectomy in the past. Prior modified barium swallow and CT imaging completed. Gastric emptying study was normal. H. pylori stool test previously ordered and not yet completed. Objective - Gastric emptying study: normal. - Prior CT and upper barium swallow did not show a large paraesophageal hernia. Assessment & Plan Dysphagia with gastroesophageal reflux and nocturnal regurgitation: Ongoing dysphagia and refractory reflux with nocturnal acid brash. Differential includes under-controlled GERD, esophageal stricture from chronic reflux, esophageal spasm, gas trapping with retrograde movement, and possible contribution from prior gastric band (e.g., tightness or slippage). Gastric emptying is normal; large paraesophageal hernia unlikely based on prior imaging. - Start pantoprazole in place of omeprazole to improve acid control and ease of swallowing; choose non-capsule formulation to allow crushing if needed. Take in the morning. - Simethicone (e.g., Phazyme/Gas-X) extra strength with meals, two to three times daily to reduce gas trapping. - Complete H. pylori stool antigen test; obtain collection cup at the lab ([facility] or [facility] [place]) and return per lab instructions. - Proceed with upper endoscopy when scheduled to evaluate for esophageal stricture and to assess for potential lap band-related issues; dilate if strict ure identified. - If endoscopic findings suggest band-related obstruction, refer back to bariatric surgeon (Dr. Carrera at [facility]) for adjustment or management. - Continue head-of-bed elevation and avoidance of late evening meals; continue to avoid hot coffee if it triggers symptoms. - Follow up in 8 weeks to assess response; patient to contact us if prescription issues arise or if symptoms worsen or new alarm features occur. H pylori stool test not obtained EGD BIOPSY Medications: New simethicone after meals 180 mg PO QID 120 caps 3RF 30 days pantoprazole (Protonix) 40 mg PO DAILY 30 tabs 6RF 30 days Discontinued omeprazole Discontinued Reason: Doctor's Order 20 mg PO DAILY 90 caps 0RF Coding Level of Care Code Est Pt Level 3 (46036) Diagnoses GERD (gastroesophageal reflux disease) K21.9 Dysphagia R13.10
[2025-02-28 15:50] VITALS: BP 103/57; PULSE 75
== END 2025-02-28 16:39 | disposition home or self-care (01) ==
LOC: HO.HGI 15:36
PROVIDERS: PCP Nurse Practitioner Family; Visit Provider Nurse Practitioner
DX: K21.9 Gastro-esophageal reflux disease without esophagitis (principal); R13.10 Dysphagia, unspecified
CPT/HCPCS: 99213